=== PATIENT | male | born 1945 | race Caucasian/White ===

== ENCOUNTER → 2018-10-01 | Day surgery (SDC) | payer MEDICARE ==
[~2018-10-01] MED LIST: BELLADONNA/OPIUM 60 MG SUPP PR ONE; CEFAZOLIN SOD 2 GM/D5W 50ML 50 ML IV ONE; DESFLURANE 240 ML BTL INH ONE; DEXAMETHASONE SOD PHOS INJ 4 MG/ML VIAL ONE; ELIQUIS PO; FAMOTIDINE20 MG PO; FENTANYL CITRATE/PF 100MCG/2 ML INJ ONE; IOPAMIDOL 610MG/1ML 300 MG/ML VIAL IV ONE; LASIX40 MG PO; LIDOCAINE HCL 2% LOCAL INJ 5 ML SDV VIAL INJ ONE; MIDAZOLAM HCL 2 MG/2 ML VIAL ONE; MUPIROCIN 2% OINT 22 GM TUBE ONE; NEOSTIGMINE 5 MG/5ML SYR ONE; NITROFURANTOIN100 MG PO; ONDANSETRON HCL INJ 2MG/ML 2ML 2 MG/ML VIAL ONE; PROPOFOL IV EMULSION 10 MG/ML 20 ML VIAL ONE; ROCURONIUM BROMIDE 10 MG/ML 5ML VIAL ONE; SUCCINYLCHOLINE 200 MG/10 ML SYR ONE
--- OUTSIDE RECORDS SUMMARY | 2018-10-01 08:58 | XMS REPORT | Continuity of Care Document ---
Author Author [facility] Address [address] [place] [address] ;ext= Care Team Providers Care Pump Erector Helper Name Role Phone JULYSTEPHANYMAME Admphys [facility] Diagnosis * No data in the System SOCIAL HISTORY * Smoking Status - No data in the system Problems Code Code System Problem Name Start Date End Date Status 928661641 SNOMED-CT Small bowel obstruction 03/24/2018 Active 3331087 SNOMED-CT Acute abdomen 07/25/1999 Active 8046442 SNOMED-CT Priapism [address] Description [id number] Patient Not On Self-Medication Allergies Code Code System Allergy Substance Type Reaction Severity Start Date End Date Status RXNorm NKA Drug allergy Unknown Active Results Laboratory Results Order: [facility] HISTOLOGY RESULT Specimen Source: APSURG Body Site: LOINC Test Result Flag Range Unit Date 1 03/25/2018 11:[address] [place] [address] 03/25/2018 11:39 1 [place], [place] [address] 03/25/2018 11:39 1 03/25/2018 11:39 1 CLIA #: [id number] Sample Sawyer: Kimani Adan M.D. 03/25/2018 11:39 1 Surgical Pathology Consultation Report 03/25/2018 11:39 1 Patient Name: SANDER RAMOS Case #: [id number] Med. Rec. #: 03/25/2018 11:39 4 [id number] 03/25/2018 11:39 1 [facility]: [facility] Surgery Date: 03/24/2018 : 1945 (Age: 72) 03/25/2018 11:39 1 Account #: 03/25/2018 11:39 7 [id number] Received: 03/25/2018 Gender: M Copy to : Reported: 03/25/2018 11:39 1 03/26/2018 03/25/2018 11:39 1 Physician(s): Stephany Mcdowell 03/25/2018 11:39 1 03/25/2018 11:39 1 Specimen(s) Received 03/25/2018 11:39 1 A: Hernia sac, NOS 03/25/2018 11:39 1 B: Omentum, resection 03/25/2018 11:39 1 Final Pathologic Diagnosis 03/25/2018 11:39 1 A. Soft tissue of abdomen, hernia repair: 03/25/2018 11:39 1 - HERNIA SAC. 03/25/2018 11:39 1 B. Omentum, resection: 03/25/2018 11:39 1 - MATURE ADIPOSE TISSUE, NO TUMOR PRESENT. 03/25/2018 11:39 1 Electronically Signed Out 03/25/2018 11:39 1 ka/03/26/2018 Kimani Adan MD, Board Certified in Anatomic Pathology 03/25/2018 11:39 1 03/25/2018 11:39 1 Clinical History 03/25/2018 11:39 1 Abdominal hernia. 03/25/2018 11:39 1 Gross Description 03/25/2018 11:39 1 Specimen A is labeled hernia sac. Three pieces of fatty omental tissue 03/25/2018 11:39 1 measuring 9.8 x 9 x up to 5 cm in aggregate are received. Serially 03/25/2018 11:39 1 sectioning 03/25/2018 11:39 1 reveals a slightly hemorrhagic cut surface. Service Delivery Management Consultant sections are 03/25/2018 11:39 1 submitted in cassette A. 03/25/2018 11:39 1 Specimen B is labeled omentum. An aggregate of fatty omental tissue 03/25/2018 11:39 1 measuring 03/25/2018 11:39 1 16 x 14 x up to 8 cm is received. Serially sectioning reveals a bright 03/25/2018 11:39 1 yellow 03/25/2018 11:39 1 cut surface. There are no tumor masses identified. 03/25/2018 11:39 1 /03/25/2018 Kimani Adan MD, Board Certified in Anatomic Pathology 03/25/2018 11:39 1 03/25/2018 11:39 1 Microscopic Description 03/25/2018 11:39 1 Microscopic examination of specimen A labeled hernia sac reveals 03/25/2018 11:39 1 mesothelial-lined fatty fibrovascular tissue. There is a mild chronic 03/25/2018 11:39 1 inflammatory cell infiltrate seen within the fibrous tissue. 03/25/2018 11:39 1 Microscopic examination of specimen B labeled mesenteric adipose tissue 03/25/2018 11:39 1 reveals mature adipose tissue. There are no malignant cells seen. 03/25/2018 11:39 1 Billing Fee Code(s): A; [id number] 03/25/2018 11:39 1 B; [id number] 03/25/2018 11:39 * Performing Lab Footnotes:* [address] [place] [address] - [phone] - [address] [address] [facility] - MD: DIRECTOR KIMANI ADAN Vital Signs * No data in the system Advance Directives Undefined Advance Directive Directive Type Effective Date Manager Product Notes Supporting Document Name Address Phone No Directive Type specified 08/22/2012 21:27 Not Specified Not Specified Not Specified None No Patient does NOT have Living Will Directive Type Effective Date Manager Product Notes Supporting Document Name Address Phone No Directive Type specified 03/24/2018 02:49 Not Specified Not Specified Not Specified None No Full Code Directive Type Effective Date Manager Product Notes Supporting Document Name Address Phone No Directive Type specified 03/24/2018 10:15 Not Specified Not Specified Not Specified None No Family History * Patient has no knowledge of Family History Plan of Care * No data in the system Procedures * No data in the system Encounters * No data in the system Immunizations Vaccine Code Code System Vaccine Name Date Status 141 CVX Influenza, seasonal, injectable Completed 33 CVX pneumococcal polysaccharide vaccine Completed Functional Status * No data in the system Hospital Discharge Instructions * No data in the system
--- OUTSIDE RECORDS SUMMARY | 2018-10-01 08:58 | XMS REPORT | Continuity of Care Document ---
Author Author [facility] Organization [facility] Address [address] [place] [address] ;ext= Care Team Providers Care Manager R D Name Role Phone CHARLES SERRANO Admphys SRAVANIKAYLIEMARCE [place] Attphys LUÍS GORDON CP MAME MCDOWELL CP ANGELA MAURICIO CP CHANTE DOWNING CP JASON ADAN CP Hospital Admission Diagnosis * No data in the System Social History Element Description Code Description Smoking Status Code System Start Date End Date Smoking Status [id number] Never smoker SNOMED-CT Problems Code Code System Problem Name Start Date End Date Status 332714489 SNOMED-CT Small bowel obstruction 03/24/2018 Active 0639671 SNOMED-CT Acute abdomen 07/25/1999 Active 0584803 SNOMED-CT Priapism 1988 Active Medications RxNorm Medication Dose Route Instructions Indications Start Date End Date Status 389196 Nystatin 100 UNT/MG Topical Powder 1 APPLIC TOPICAL TOPICAL TWICE A DAY (14 Days) Active Allergies Code Code System Allergy Substance Type Reaction Severity Start Date End Date Status RXNorm NKA Drug allergy Unknown Active Results Laboratory Results Order: CBC with MANUAL DIFF Specimen Source: BLOOD Body Site: LOINC Test Result Flag Range Unit Date 07629-5 1Leukocytes^^corrected for nucleated erythrocytes:NCnc:Pt:Bld:Qn:Automated count 11.07 H 4.80-10.80 10^3/ul 04/01/2018 13:47 789-8 1Erythrocytes:NCnc:Pt:Bld:Qn:Automated count 4.39 L 4.70-6.10 10^6/ul 04/01/2018 13:47 718-7 1Hemoglobin:MCnc:Pt:Bld:Qn 14.5 14.0-18.0 gm/dl 04/01/2018 13:47 4544-3 1Hematocrit:VFr:Pt:Bld:Qn:Automated count 43.4 42.0-50.0 % 04/01/2018 13:47 787-2 1Erythrocyte mean corpuscular volume:EntVol:Pt:RBC:Qn:Automated count 98.9 H 80.0-94.0 fL 04/01/2018 13:47 785-6 1Erythrocyte mean corpuscular hemoglobin:EntMass:Pt:RBC:Qn:Automated count 33 H 27.0-31.0 pg 04/01/2018 13:47 786-4 1Erythrocyte mean corpuscular hemoglobin concentration:MCnc:Pt:RBC:Qn:Automated count 33.4 33.0-37.0 gm/dl 04/01/2018 13:47 788-0 1Erythrocyte distribution width:Ratio:Pt:RBC:Qn:Automated count 12.8 11.5-14.5 % 04/01/2018 13:47 777-3 1Platelets:NCnc:Pt:Bld:Qn:Automated count 170 130-400 10^3/ul 04/01/2018 13:47 05140-9 1Platelet mean volume:EntVol:Pt:Bld:Qn:Automated count 10.6 A 7.4-10.4 fL 04/01/2018 13:47 Note: 'NOT MEASURED' RESULTS ARE DISPLAYED WHEN THE INSTRUMENT HAS A SUPPRESSED OR UNREPORTABLE RESULT. THIS WILL MOST OFTEN HAPPEN WITH THE MPV WHEN THERE IS AN ABNORMAL PLATELET DISTRIBUTION DUE TO A CRITICAL LOW VALUE OR PLATELET CLUMPING. THE RDW MAY BE SUPPRESSED IF THERE ARE MULTIPLE PEAKS PRESENT ON THE RBC HISTOGRAM. IN THIS CASE, A MANUAL REVIEW OF THE SLIDE WILL BE PERFORMED, AND RBC MORPHOLOGY WILL BE NOTED ON THE REPORT. 1Neutrophils 84 H 42-75 10^3/ul 04/01/2018 13:47 1Lymphocytes 7 L 13-42 % 04/01/2018 13:47 1Monocytes 6 4-14 % 04/01/2018 13:47 1Eosinophils 3 1-3 % 04/01/2018 13:47 1RBC Morphology Normochromic 04/01/2018 13:47 * Performing Lab Footnotes:* [address] [place] [address] - [id number] - [address] [facility] [address] [place] [address] [facility] - MD: DIRECTOR KIMANI ADAN Order: CBC - HEMOGRAM ONLY Specimen Source: BLOOD Body Site: INC Test Result Flag Range Unit Date 1Leukocytes^^corrected for nucleated erythrocytes:NCnc:Pt:Bld:Qn:Automated count 9.46 4.80-10.80 10^3/ul 04/01/2018 07:25 789-8 1Erythrocytes:NCnc:Pt:Bld:Qn:Automated count 5.76 4.70-6.10 10^6/ul 04/01/2018 07:25 718-7 1Hemoglobin:MCnc:Pt:Bld:Qn 19.2 H 14.0-18.0 gm/dl 04/01/2018 07:25 4544-3 1Hematocrit:VFr:Pt:Bld:Qn:Automated count 55.6 H 42.0-50.0 % 04/01/2018 07:25 787-2 1Erythrocyte mean corpuscular volume:EntVol:Pt:RBC:Qn:Automated count 96.5 H 80.0-94.0 fL 04/01/2018 07:25 785-6 1Erythrocyte mean corpuscular hemoglobin:EntMass:Pt:RBC:Qn:Automated count 33.3 H 27.0-31.0 pg 04/01/2018 07:25 786-4 1Erythrocyte mean corpuscular hemoglobin concentration:MCnc:Pt:RBC:Qn:Automated count 34.5 33.0-37.0 gm/dl 04/01/2018 07:25 788-0 1Erythrocyte distribution width:Ratio:Pt:RBC:Qn:Automated count 12.8 11.5-14.5 % 04/01/2018 07:25 777-3 1Platelets:NCnc:Pt:Bld:Qn:Automated count 117 L 130-400 10^3/ul 04/01/2018 07:25 40020-5 1Platelet mean volume:EntVol:Pt:Bld:Qn:Automated count 11.1 A 7.4-10.4 fL 04/01/2018 07:25 Note: 'NOT MEASURED' RESULTS ARE DISPLAYED WHEN THE INSTRUMENT HAS A SUPPRESSED OR UNREPORTABLE RESULT. THIS WILL MOST OFTEN HAPPEN WITH THE MPV WHEN THERE IS AN ABNORMAL PLATELET DISTRIBUTION DUE TO A CRITICAL LOW VALUE OR PLATELET CLUMPING. THE RDW MAY BE SUPPRESSED IF THERE ARE MULTIPLE PEAKS PRESENT ON THE RBC HISTOGRAM. IN THIS CASE, A MANUAL REVIEW OF THE SLIDE WILL BE PERFORMED, AND RBC MORPHOLOGY WILL BE NOTED ON THE REPORT. * Performing Lab Footnotes:* [address] [place] [address] - [id number] - [address] [place] [address] [place] - MD: DIRECTOR KIMANI ADAN Order: BMP BASIC METABOLIC PANEL Specimen Source: BLOOD Body Site: LOINC Test Result Flag Range Unit Date 1Sodium 144 137-145 mmol/l 04/01/2018 06:19 1Potassium 4 3.5-5.0 mmol/l 04/01/2018 06:19 1Chloride 111 H 98-107 mmol/l 04/01/2018 06:19 1Calcium 8.9 8.4-10.2 mg/dl 04/01/2018 06:19 1CO2 26 22-30 mmol/l 04/01/2018 06:19 1Glucose 109 75-110 mg/dl 04/01/2018 06:19 1BUN 26 H 6.0-17.0 mg/dl 04/01/2018 06:19 1Creatinine 1.1 0.4-1.2 mg/dl 04/01/2018 06:19 1EGFR if >60 mL/min/1.73m^2 04/01/2018 06:19 1EGFR if Non- >60 mL/min/1.73m^2 04/01/2018 06:19 Note: Estimated Glomerular Filtration Rate (eGFR) Reference Intervals Decision Points for 18 years and older and average body mass: >=60 Does not exclude kidney disease. 30 - 59 Suggests moderate chronic kidney disease and indicates the need for further investigation including assessment of proteinuria and cardiovascular factors. < 30 Usually indicates a need for referral for assessment and management of chronic kidney failure. * Performing Lab Footnotes:* [address] [place] [address] [id number] - [address] [place] [address] [facility] - MD: DIRECTOR KIMANI ADAN Order: CBC PLATELET AUTO DIFF Specimen Source: BLOOD Body Site: [facility] Test Result Flag Range Unit Date 1Leukocytes^^corrected for nucleated erythrocytes:NCnc:Pt:Bld:Qn:Automated count 8.08 4.80-10.80 10^3/ul 03/31/2018 06:10 789-8 1Erythrocytes:NCnc:Pt:Bld:Qn:Automated count 4.6 L 4.70-6.10 10^6/ul 03/31/2018 06:10 718-7 1Hemoglobin:MCnc:Pt:Bld:Qn 15.1 14.0-18.0 gm/dl 03/31/2018 06:10 4544-3 1Hematocrit:VFr:Pt:Bld:Qn:Automated count 45.6 42.0-50.0 % 03/31/2018 06:10 787-2 1Erythrocyte mean corpuscular volume:EntVol:Pt:RBC:Qn:Automated count 99.1 H 80.0-94.0 fL 03/31/2018 06:10 785-6 1Erythrocyte mean corpuscular hemoglobin:EntMass:Pt:RBC:Qn:Automated count 32.8 H 27.0-31.0 pg 03/31/2018 06:10 786-4 1Erythrocyte mean corpuscular hemoglobin concentration:MCnc:Pt:RBC:Qn:Automated count 33.1 33.0-37.0 gm/dl 03/31/2018 06:10 788-0 1Erythrocyte distribution width:Ratio:Pt:RBC:Qn:Automated count 12.7 11.5-14.5 % 03/31/2018 06:10 777-3 1Platelets:NCnc:Pt:Bld:Qn:Automated count 167 130-400 10^3/ul 03/31/2018 06:10 43439-3 1Platelet mean volume:EntVol:Pt:Bld:Qn:Automated count 11.1 A 7.4-10.4 fL 03/31/2018 06:10 Note: 'NOT MEASURED' RESULTS ARE DISPLAYED WHEN THE INSTRUMENT HAS A SUPPRESSED OR UNREPORTABLE RESULT. THIS WILL MOST OFTEN HAPPEN WITH THE MPV WHEN THERE IS AN ABNORMAL PLATELET DISTRIBUTION DUE TO A CRITICAL LOW VALUE OR PLATELET CLUMPING. THE RDW MAY BE SUPPRESSED IF THERE ARE MULTIPLE PEAKS PRESENT ON THE RBC HISTOGRAM. IN THIS CASE, A MANUAL REVIEW OF THE SLIDE WILL BE PERFORMED, AND RBC MORPHOLOGY WILL BE NOTED ON THE REPORT. 770-8 1Neutrophils/100 leukocytes:NFr:Pt:Bld:Qn:Automated count 68.3 42.0-75.0 % 03/31/2018 06:10 736-9 1Lymphocytes/100 leukocytes:NFr:Pt:Bld:Qn:Automated count 11.8 L 13.0-42.0 % 03/31/2018 06:10 5905-5 1Monocytes/100 leukocytes:NFr:Pt:Bld:Qn:Automated count 10.9 4.0-14.0 % 03/31/2018 06:10 713-8 1Eosinophils/100 leukocytes:NFr:Pt:Bld:Qn:Automated count 5.2 H 1.0-5.0 % 03/31/2018 06:10 706-2 1Basophils/100 leukocytes:NFr:Pt:Bld:Qn:Automated count 1.2 0.0-3.0 % 03/31/2018 06:10 1IG% 2.6 H 0.0-0.4 % 03/31/2018 06:10 * Performing Lab Footnotes:* [address] [place] [address] - [id number] - [address] [facility] [address] [facility] [place] [address] [facility] - MD: DIRECTOR KIMANI ADAN Order: CMP COMPREHENSIVE METABOLIC PANEL Specimen Source: BLOOD Body Site: LOINC Test Result Flag Range Unit Date 1Sodium 143 137-145 mmol/l 03/31/2018 06:10 1Potassium 4 3.5-5.0 mmol/l 03/31/2018 06:10 1Chloride 112 H 98-107 mmol/l 03/31/2018 06:10 1Calcium 8.9 8.4-10.2 mg/dl 03/31/2018 06:10 1CO2 24 22-30 mmol/l 03/31/2018 06:10 1Glucose 108 75-110 mg/dl 03/31/2018 06:10 1BUN 39 H 6.0-17.0 mg/dl 03/31/2018 06:10 1Creatinine 1.6 H 0.4-1.2 mg/dl 03/31/2018 06:10 1T Protein 6.9 5.1-8.7 gm/dl 03/31/2018 06:10 1Albumin 3.3 L 3.5-4.6 gm/dl 03/31/2018 06:10 1A/G Ratio 0.9 L 1.1-2.2 % 03/31/2018 06:10 1AST (SGOT) 64 H 11-36 U/L 03/31/2018 06:10 1ALT (SGPT) 55 H 11-40 U/L 03/31/2018 06:10 1Alkaline Phos 153 H 47-114 U/L 03/31/2018 06:10 1Total Bilirubin 0.9 0.2-1.2 mg/dl 03/31/2018 06:10 1Globulin 3.6 H 2.3-3.5 gm/dl 03/31/2018 06:10 1Calcium, Corrected 9.5 8.4-10.2 mg/dl 03/31/2018 06:10 Note: Various formulas exist for corrected serum calcium results, each yielding different values. This corrected result was based on the formula: Corrected Calcium=SerumCalcium + [0.8 * ( 4 - SerumAlbumin)] 1EGFR if 55 mL/min/1.73m^2 03/31/2018 06:10 1EGFR if Non- 45 mL/min/1.73m^2 03/31/2018 06:10 Note: Estimated Glomerular Filtration Rate (eGFR) Reference Intervals Decision Points for 18 years and older and average body mass: >=60 Does not exclude kidney disease. 30 - 59 Suggests moderate chronic kidney disease and indicates the need for further investigation including assessment of proteinuria and cardiovascular factors. < 30 Usually indicates a need for referral for assessment and management of chronic kidney failure. * Performing Lab Footnotes:* [address] [place] [address] - [id number] - [address] [place] [address] [place] [address] [facility] - MD: DIRECTOR KIMANI ADAN Order: MAGNESIUM SERUM Specimen Source: BLOOD Body Site: [facility] Test Result Flag Range Unit Date 1Magnesium 1.6 1.6-2.3 mg/dl 03/31/2018 06:10 * Performing Lab Footnotes:* [address] [place] [address] - [id number] - [address] [place] [address] JOLLY Oh MD: DIRECTOR KIMANI ADAN Order: PROTIME PT INR Specimen Source: BLOOD Body Site: LOINC Test Result Flag Range Unit Date 5902- 1Coagulation tissue factor induced:Time:Pt:PPP:Qn:Coag 10.8 9.0-11.9 seconds 03/29/2018 12:20 6301-6 1Coagulation tissue factor induced.INR:RelTime:Pt:PPP:Qn:Coag 1 0.9-1.1 03/29/2018 12:20 Note: INR results are intended ONLY to monitor Oral Anticoagulant therapy in stablized patients. The INR Therapeutic Range is 2.0 - 3.0 Patients with a mechanical heart, the INR Range is 2.5 - 3.5 * Performing Lab Footnotes:* [address] [place] [address] [id number] - [address] [place] [address] JOLLY Oh MD: DIRECTOR KIMANI ADAN Order: PRO BNP B - NATRIURETIC PEPTIDE Specimen Source: BLOOD Body Site: LOINC Test Result Flag Range Unit Date 40756-1 1Natriuretic peptide.B prohormone N-Terminal:MCnc:Pt:Ser/Plas:Qn 9160 H 0-125 pg/ml 03/26/2018 21:54 Note: THE METHODOLOGY FOR DETECTION OF B-NATRIURETIC PEPTIDE HAS BEEN CHANGED TO 'NT pro-BNP'. THE NORMAL RANGES HAVE CHANGED. PLEASE NOTE THAT RANGES ARE DEFINED BY THE AGE OF THE PATIENT. (<75 years old=0-125 pg/ml 75years and older=0-450pg/ml). VALUES ARE NOT INTERCHANGEABLE BETWEEN METHODS. 06-23-2006 * Performing Lab Footnotes:* [address] [place] [address] - [id number] - [address] [facility] [address] [place] [address], [place] [address] [facility] - MD: DIRECTOR KIMANI ADAN Order: CULTURE URINE COLONY COUNT Specimen Source: URINE SPECIMENS Body Site: [facility] Test Result Flag Range Unit Date Specimen: Urine Specimens 03/26/2018 21:40 Collected: 03/26/2018 21:40 03/26/2018 21:40 03/26/2018 21:40 Status: Final Last Updated: 03/29/2018 06:21 03/26/2018 21:40 03/26/2018 21:40 03/26/2018 21:40 Culture Result (Final) (Final) 03/26/2018 21:40 No Growth After 48 Hours 03/26/2018 21:40 03/26/2018 21:40 03/26/2018 21:40 Radiology Results Order: [id number] US RENAL & BLADDER (KIDNEYS)* Exam Completion Date:03/29/2018 09:47 Procedure: US RENAL Order Date: 03/29/2018 9:47 AMOrdering Provider: CHARLES Siddiqiinical Indication: ABDDIST: Abdominal Distentionworsening renal failure , eval for worsening hydronephrosisComparison: March 26, 2018Technique: Real-t cecilia ultrasonography was obtained over the kidneys and urinarybladder and represe ntative images were recorded.Findings:The right kidney is normal in size and con tour. The right kidney measures 11.1 x6.7 x 6.9 cm in CC, AP, and transverse dim ensions. There is normal renal cortical thickness and echogenicity. Mild right h ydronephrosis.No calculi or masses.The left kidney is normal in size and contour . The left kidney measures 10.1 x6.2 x 6.7 cm in CC, AP, and transverse dimensio ns. There is normal renal cortical thickness and echogenicity.There is a simple cyst arising from the superior pole measuring 4.9 x 4.0 cm.Mild left hydronephro sis.No calculi or masses.The bladder is significantly distended with a total vol ume of 1167 mL.Patient did not have an urge to void.There are no bladder calculi , masses, or focal wall thickening.Impression:1. Significant distention of the b ladder with a volume of 1167 mL. The patienthad no urge to void during the exam. Recommend Hernández catheter placement.2. Mild hydronephrosis bilaterally which is likely secondary to the distendedbladder.3. 4.9 cm simple cyst arising from the superior pole of the left kidney.5. No solid renal masses or calculi.6. Prelimin cherri report relayed by the manager company to the attending nurse.This final report w as electronically signed by Dr Dangelo Stephens MD 03/29/201811:27 AMDictated By: DANGELO STEPHENS.Date: 03/29/2018 11:27 Vital Signs Vitals Value Date Body Temperature 97.4 F 04/03/2018 Pulse Rate 67 04/03/2018 Respiratory Rate 20 04/03/2018 O2% BldC Oximetry 98 04/03/2018 BP Systolic 127 mmHg 04/03/2018 BP Diastolic 58 mmHg 04/03/2018 Weight Measured 440.26 lbs 04/03/2018 Advance Directives Undefined Advance Directive Directive Type Effective Date Spinning Frame Tender Notes Supporting Document Name Address Phone No Directive Type specified 08/22/2012 21:27 Not Specified Not Specified Not Specified None No Patient does NOT have Living Will Directive Type Effective Date Spinning Frame Tender Notes Supporting Document Name Address Phone No Directive Type specified 03/24/2018 02:49 Not Specified Not Specified Not Specified None No Full Code Directive Type Effective Date Spinning Frame Tender Notes Supporting Document Name Address Phone No Directive Type specified 03/24/2018 10:15 Not Specified Not Specified Not Specified None No Family History * Patient has no knowledge of Family History Plan of Care * No data in the system Procedures Code Code System Procedure Name Target Site Date of Procedure RENAL & BLADDER (KIDNEYS) 03/29/2018 11:33 Encounters * No data in the system Immunizations Vaccine Code Code System Vaccine Name Date Status 141 CVX Influenza, seasonal, injectable Completed 33 CVX pneumococcal polysaccharide vaccine Completed Functional Status Code Functional/Cognitive Condition Code System Date Status 365127505 Assisting with personal hygiene (procedure) [facility] 03/26/2018 Active 227756453 Ability to perform activities of everyday life (observable entity) [facility] 03/26/2018 Active 326266796 Able to wash self [facility] 03/26/2018 Active 535221388 Ability to manage personal health care (observable entity) [facility] 03/26/2018 Active 676188649 Self-care assistance: instrumental activity of daily living (procedure) [facility] 03/26/2018 Active 40618901 Normal vision [facility] 03/26/2018 Active 077527023 Unsteady gait [facility] 03/30/2018 Active 334454185 Stable gait (finding) [facility] 03/31/2018 Active 599629193 Wears glasses [facility] 04/01/2018 Active 736575282 No speech problem (situation) [facility] 04/02/2018 Active 853481782 Firm pressure touch, function (observable entity) [facility] 04/02/2018 Active 387217639 Orientated SNOMED-CT 04/03/2018 Active 087269279 Orientated SNOMED-CT 04/03/2018 Active 010717398 Orientated SNOMED-CT 04/03/2018 Active 787007911 Oriented to person [facility] 04/03/2018 Active Hospital Discharge Instructions * Discharge Instructions* IV Removed Date* 04/03/2018 * Discharge Diagnosis* Small Bowel obstruction, UTI * Physician Name for Follow Up Appt #1* Make appointment with Dr Adan in 2 weeks [phone] * Physician Name for Follow Up Appt #2* Get Primary Care Physician and follow up in 2 weeks * Physician Name, Date/Time For Follow Up Appt #3* Keep hernández in and flush as instructed until appointment with Dr Adan * Hernández Catheter Insertion Date* 03/31/2018 * Referral Required* None * Activity Level* As tolerated, unrestricted * Medications* Prescriptions Given * Take all medications as listed on your Discharge Medication List as directed * DO NOT STOP taking your medicine(s) until directed by your doctor. * Diet* Regular * Discharge Instructions* Patient education provided * Wound Care * Follow Up Care* Yes * Patient To Schedule * Copy of Advanced Directive given to Patient* No * Pneumonia Vaccine* Refused By Patient * Indwelling Catheter Status* - Medical contraindication * - Not indicated * Indwelling Catheter Not Removed * Pt sent home with indwelling catheter * Discharge Instructions 2* Wound / Incision Care* Keep wound / incision clean and dry * If steri-strips become loose, remove them * Call doctor if temperature is above 101 or if change in wound /incision / drainage is noted * Core Measure / Get with the Guidelines (AMI/HF)* Review Discharge Medications with patient for next dose times * Smoking Cessation Teaching* Patient is nonsmoker or former smoker of greater than one year * Discharge Education* Copy of Discharge Medication List * Notify Physician if You Experience:* Chest discomfort not relieved by 3 Nitroglycerin tabs, 5 minutes apart * Chest discomfort that goes away and comes back * Chest discomfort, squeezing, pressure, fullness * Discomfort in other areas of the upper body, arms, back, neck, jaw, gums * Shortness of breath, with or without chest discomfort * Worsening of condition * Notify Surgeon if You Experience:* Increased warmth around surgical area * Redness or increased pain around surgical area * Red streaks coming from surgical area * Personal Belongings Returned To Patient/Family* Yes * Valuables Returned To Patient/Family* Yes * Pre-Admission Medications Returned To Patient/Family* Yes * Patient/Significant Other Education Acknowledgement* I hereby acknowledge receiving the explanation of the attached instructions. I was able to 'teach back' my health information and education to my nurse and I understand what I was taught as indicated by my signature below. * Person Receiving Discharge Instructions* Ben Shell and * Discharge Instructions Explained To* Patient * Discharge Summary* Accompanied By* Spouse * Discharge Status* Vital Signs Stable * Afebrile * Adequate Diet/Liquid Intake * Adequate Urinary Output * Adequate Bowel Functioning * Activity Tolerated within Physical Limits * Mode Of Discharge* Wheelchair * Patient Transferred/Discharged To* Relatives * Home Health Care Monitoring Required* No * Pain At Discharge* Denies Pain
--- OUTSIDE RECORDS SUMMARY | 2018-10-01 08:58 | XMS REPORT ---
Author Author [facility] Address Unknown Phone Unavailable Care Team Providers Care Ecologist Technician Name Role Phone Unavailable Unavailable Payers Payer Name Policy Type Policy Number Effective Date Expiration Date Problems This patient has no known problems. Allergies, Adverse Reactions, Alerts Allergy Name Allergy Type Status Severity Reaction(s) Onset Date Inactive Date Treating Clinician Comments No Known Allergies DA Active U 2018-04-10 00:00:00 No Known Contrast Allergies DA Active U 2003-09-24 00:00:00 No Known Drug Allergies DA Active U 2003-09-24 00:00:00 No Known Food Allergies DA Active U 2003-09-24 00:00:00 No Known Other Allergies DA Active U 2003-09-24 00:00:00 Medications This patient has no known medications.
--- OUTSIDE RECORDS SUMMARY | 2018-10-01 08:58 | XMS REPORT | Continuity of Care Document ---
Author Author [facility] Organization [facility] Address [address] [place] [address] ;ext= Care Team Providers Care House Carpenter Name Role Phone CHRISTOPHER CAMARENA Admphybang [facility] Diagnosis * No data in the System Social History Element Description Code Description Smoking Status Code System Start Date End Date Smoking Status [id number] Never smoker SNOMED-CT Problems Code Code System Problem Name Start Date End Date Status 671205849 SNOMED-CT Falls 04/04/2018 Active 53528097 SNOMED-CT Contusion of lower limb 04/04/2018 Active 107315792 SNOMED-CT Small bowel obstruction 03/24/2018 Active 0603069 SNOMED-CT Acute abdomen 07/25/1999 Active 6836685 SNOMED-CT Priapism 1988 Active Medications RxNorm Medication Dose Route Instructions Indications Start Date End Date Status 639418 Nystatin 100 UNT/MG Topical Powder 1 APPLIC TOPICAL TOPICAL TWICE A DAY (14 Days) No Longer Active Allergies Code Code System Allergy Substance Type Reaction Severity Start Date End Date Status RXNorm NKA Drug allergy Unknown Active Results Radiology Results Order: [id number] XR LEG (TIB/FIB) 2 VIEWS* Exam Completion Date:04/04/2018 01:02 Procedure: XR LEG (TIB/FIB) 2 VIEWS, XR LEG (TIB/FIB) 2 VIEWS Exam Date: April 04, 2018 Ordering Provider: Christopher Pinoinical Indication: pain s/p fa llComparison: NoneFindings: See impressionImpression: 1. No acute osseous abn ormalities in the bilateral leg (tibial/fibular).2. Bilateral degenerative brian ges of the knee with medial compartmentpredominance.3. Diffuse soft tissue rochelle a and vascular calcifications throughout the softtissuesThis final report was el ectronically signed by Dr Christopher Jenkins MD04/04/2018 2:17 AMDictated By: Enrique RIVERS: 04/04/2018 02:17 Order: [id number] XR FOOT 2VWS* Exam Completion Date:04/04/2018 01:02 Procedure: XR FOOT 2VWS Exam Date: April 04, 2018 Ordering Provider: CHRISTOPHER Bustos Indication: pain s/p fallComparison: NoneFindings: See impr essionImpression: 1. No evidence of acute osseous abnormalities.2. There is d iffuse soft tissue edema throughout the right foot with dorsalfoot predominance. 3. Multiple soft tissue calcifications noted on the lower pretibialdistribution .4. Degenerative changes of the mid and forefootThis final report was electroni susan signed by Dr Christopher Jenkins MD04/04/2018 2:18 AMDictated By: Enrique GOLDEN: 04/04/2018 02:18 Order: [id number] XR LEG (TIB/FIB) 2 VIEWS* Exam Completion Date:04/04/2018 01:01 Procedure: XR LEG (TIB/FIB) 2 VIEWS, XR LEG (TIB/FIB) 2 VIEWS Exam Date: April 04, 2018 Ordering Provider: Christopher Bustos Indication: pain s/p fa llComparison: NoneFindings: See impressionImpression: 1. No acute osseous abn ormalities in the bilateral leg (tibial/fibular).2. Bilateral degenerative brian ges of the knee with medial compartmentpredominance.3. Diffuse soft tissue rochelle a and vascular calcifications throughout the softtissuesThis final report was el ectronically signed by Dr Christopher Jenkins MD04/04/2018 2:17 AMDictated By: Enrique RIVERS: 04/04/2018 02:17 Order: [id number] XR FOOT 2VWS* Exam Completion Date:04/04/2018 01:01 Procedure: XR FOOT 2VWS Exam Date: April 04, 2018 Ordering Provider: Christopher Bustos Indication: pain s/p fallComparison: NoneFindings: See impr essionImpression: 1. No evidence of acute osseous abnormalities.2. There is d iffuse soft tissue edema throughout the right foot with dorsalfoot predominance. 3. Multiple soft tissue calcifications noted on the level of the ankle.4. Dege nerative changes of the mid and forefootThis final report was electronically sig anabell by Dr Christopher Jenkins MD04/04/2018 2:13 AMDictated By: VANNESSA FLORES ANDate: 04/04/2018 02:13 Vital Signs Vitals Value Date Pulse Rate 83 04/04/2018 Respiratory Rate 17 04/04/2018 O2% BldC Oximetry 97 04/04/2018 BP Systolic 116 mmHg 04/04/2018 BP Diastolic 66 mmHg 04/04/2018 Body Temperature 97.9 F 04/04/2018 Height 72 in 04/04/2018 Weight Measured 451.94 lbs 04/04/2018 BSA (Body Surface Area) 3.59287 04/04/2018 BMI (Body Mass Index) 61.8 04/04/2018 Advance Directives Undefined Advance Directive Directive Type Effective Date Seasonal Customer Service Associate Notes Supporting Document Name Address Phone No Directive Type specified 08/22/2012 21:27 Not Specified Not Specified Not Specified None No Patient does NOT have Living Will Directive Type Effective Date Seasonal Customer Service Associate Notes Supporting Document Name Address Phone No Directive Type specified 03/24/2018 02:49 Not Specified Not Specified Not Specified None No Full Code Directive Type Effective Date Seasonal Customer Service Associate Notes Supporting Document Name Address Phone No Directive Type specified 03/24/2018 10:15 Not Specified Not Specified Not Specified None No Family History * Patient has no knowledge of Family History Plan of Care * No data in the system Procedures Code Code System Procedure Name Target Site Date of Procedure XR FOOT 2VWS 04/04/2018 02:25 Encounters * No data in the system Immunizations Vaccine Code Code System Vaccine Name Date Status 141 CVX Influenza, seasonal, injectable Completed 33 CVX pneumococcal polysaccharide vaccine Completed PT NOT UP TO DATE FLU Completed Functional Status * No data in the system Hospital Discharge Instructions * Discharge Instructions 2* Discharge Diagnosis* fall prevention, contusion in adults * Important Information* Consult your physician or return to the Emergency Department immediately if worse, if not better as expected, or if any problems arise. * Please understand that you have received care only on an emergency basis. If your condition does not improve, you should call your personal physician for follow-up care. If you do not have a physician, you may call the referred physician listed. * If you have questions about your care or these discharge instructions, you may call the Emergency Department. Please take your discharge paperwork with you to any follow-up appointments. * Follow Up Care* No * Follow-Up With:* Primary Care Physician * Activity Level* As tolerated, unrestricted * Diet* Regular * Prescriptions Given Via:* Printed and given to patient/caregiver. * Patient Teaching* Patient education provided
--- OUTSIDE RECORDS SUMMARY | 2018-10-01 08:58 | XMS REPORT | Continuity of Care Document ---
Author Author [facility] Address [address] [place] [address] ;ext= Care Team Providers Care Assisted Living Administrator Name Role Phone CIHNO ESPINOSA Admphys CHINO ESPINOSA Attphys PATTI MARTINEZ CP Unavailable MAME MCDOWELL CP ANGELA MAURICIO CP Hospital Admission Diagnosis Code Admission Diagnosis Date [id number] Abdominal pain Social History Element Description Code Description Smoking Status Code System Start Date End Date Smoking Status [id number] Never smoker SNOMED-CT Problems Code Code System Problem Name Start Date End Date Status 770973394 SNOMED-CT Falls 04/04/2018 Active 13644491 SNOMED-CT Contusion of lower limb 04/04/2018 Active 681345132 SNOMED-CT Small bowel obstruction 03/24/2018 Active 1934664 SNOMED-CT Acute abdomen 07/25/1999 Active 6048081 SNOMED-CT Priapism [address] Description 671654477 Patient Not On Self-Medication Allergies Code Code System Allergy Substance Type Reaction Severity Start Date End Date Status RXNorm NKA Drug allergy Unknown Active Results Laboratory Results Order: BMP BASIC METABOLIC PANEL Specimen Source: BLOOD Body Site: LOINC Test Result Flag Range Unit Date 1Glucose 108 75-110 mg/dl 03/26/2018 14:00 1BUN 39 H 6.0-17.0 mg/dl 03/26/2018 14:00 1Creatinine 3.9 H 0.4-1.2 mg/dl 03/26/2018 14:00 1Sodium 143 137-145 mmol/l 03/26/2018 14:00 1Potassium 4.8 3.5-5.0 mmol/l 03/26/2018 14:00 1Chloride 111 H 98-107 mmol/l 03/26/2018 14:00 1CO2 25 22-30 mmol/l 03/26/2018 14:00 1Calcium 8.3 L 8.4-10.2 mg/dl 03/26/2018 14:00 1EGFR if 20 mL/min/1.73m^2 03/26/2018 14:00 1EGFR if Non- 16 mL/min/1.73m^2 03/26/2018 14:00 Note: Estimated Glomerular Filtration Rate (eGFR) Reference [...] chronic kidney failure. * Performing Lab Footnotes:* [address] [place], [place] [id number] [address] - MD: DIRECTOR KIMANI SOUSA Order: EOSINOPHIL COUNT URINE Specimen Source: URINE SPECIMENS Body Site: [facility] Test Result Flag Range Unit Date 1Eosinophils:ACnc:Pt:XXX:Ord:Paulino stain No Eosinophils Seen % 03/26/2018 12:33 Note: <5% few or none seen * Performing Lab Footnotes:* [facility] [address] [place] [address] - Order: CPK Specimen Source: BLOOD Body Site: LOINC Test Result Flag Range Unit Date 1CPK 354 H 30-135 U/L 03/26/2018 09:03 * Performing Lab Footnotes:* [address] [place] [address] - [id number] - [address] [place] [address] JOLLY - MD: DIRECTOR KIMANI SOUSA Order: CBC PLATELET AUTO DIFF Specimen Source: BLOOD Body Site: LOINC Test Result Flag Range Unit Date 52491-7 1Leukocytes^^corrected for nucleated erythrocytes:NCnc:Pt:Bld:Qn:Automated count 13.48 H 4.80-10.80 10^3/ul 03/26/2018 05:39 789-8 1Erythrocytes:NCnc:Pt:Bld:Qn:Automated count 5.17 4.70-6.10 10^6/ul 03/26/2018 05:39 718-7 1Hemoglobin:MCnc:Pt:Bld:Qn 16.9 14.0-18.0 gm/dl 03/26/2018 05:39 4544-3 1Hematocrit:VFr:Pt:Bld:Qn:Automated count 51.9 H 42.0-50.0 % 03/26/2018 05:39 787-2 1Erythrocyte mean corpuscular volume:EntVol:Pt:RBC:Qn:Automated count 100.4 H 80.0-94.0 fL 03/26/2018 05:39 785-6 1Erythrocyte mean corpuscular hemoglobin:EntMass:Pt:RBC:Qn:Automated count 32.7 H 27.0-31.0 pg 03/26/2018 05:39 786-4 1Erythrocyte mean corpuscular hemoglobin concentration:MCnc:Pt:RBC:Qn:Automated count 32.6 L 33.0-37.0 gm/dl 03/26/2018 05:39 788-0 1Erythrocyte distribution width:Ratio:Pt:RBC:Qn:Automated count 13.1 11.5-14.5 % 03/26/2018 05:39 777-3 1Platelets:NCnc:Pt:Bld:Qn:Automated count 188 130-400 10^3/ul 03/26/2018 05:39 32459-2 1Platelet mean volume:EntVol:Pt:Bld:Qn:Automated count 10.5 A 7.4-10.4 fL 03/26/2018 05:39 Note: 'NOT MEASURED' RESULTS ARE DISPLAYED WHEN [...] ON THE REPORT. 770-8 1Neutrophils/100 leukocytes:NFr:Pt:Bld:Qn:Automated count 82.1 H 42.0-75.0 % 03/26/2018 05:39 736-9 1Lymphocytes/100 leukocytes:NFr:Pt:Bld:Qn:Automated count 8 L 13.0-42.0 % 03/26/2018 05:39 5905-5 1Monocytes/100 leukocytes:NFr:Pt:Bld:Qn:Automated count 9.1 4.0-14.0 % 03/26/2018 05:39 713-8 1Eosinophils/100 leukocytes:NFr:Pt:Bld:Qn:Automated count 0.1 L 1.0-5.0 % 03/26/2018 05:39 706-2 1Basophils/100 leukocytes:NFr:Pt:Bld:Qn:Automated count 0.2 0.0-3.0 % 03/26/2018 05:39 1IG% 0.5 H 0.0-0.4 % 03/26/2018 05:39 * Performing Lab Footnotes:* [address] [place] [address] - [id number] - [address] [place] [address] [address] [place] [address] JOLLY Oh MD: DIRECTOR KIMANI SOUSA Order: CORONARY RISK Specimen Source: BLOOD Body Site: [facility] Test Result Flag Range Unit Date 1Triglycerides 95 0-149 mg/dl 03/26/2018 05:39 Note: Trig. Interpretation Guide: Normal: < 150 mg/dl Borderline High: 150 - 199 mg/dl High: 200 - 499 mg/dl Very High: >=500 mg/dl 1Cholesterol 129 0-198 mg/dl 03/26/2018 05:39 1HDL 46 35-86 mg/dl 03/26/2018 05:39 57630-6 1Cholesterol.in LDL:MCnc:Pt:Ser/Plas:Qn:Direct assay 88 0-99 mg/dl 03/26/2018 05:39 Note: Direct LDL Intrepretations: Optimal: <100 mg/dl Suspect: 100 - 129 mg/dl Borderline: 130 - 159 mg/dl High: 160 - 189 mg/dl Very High: >190 mg/dl 1Risk Factor 2.8 0.0-5.0 03/26/2018 05:39 Note: Risk Factor Men Women Risk Factor 3.4 3.3 1/2 Average 5.0 4.4 Average 9.6 7.1 2X Average 24.0 11.0 3X Average 1vLDL 19 L 20-50 mg/dl 03/26/2018 05:39 * Performing Lab Footnotes:* 1[facility] - [id number] - [address] [place] [address] JOLLY Oh MD: DIRECTOR KIMANI SOUSA Order: UA URINALYSIS WITH MICROSCOPY Specimen Source: URINE SPECIMENS Body Site: [facility] Test Result Flag Range Unit Date 5777-11 1Color:Type:Pt:Urine:Nom Brown 03/26/2018 03:45 5767-9 1Appearance:Aper:Pt:Urine:Nom CLEAR 03/26/2018 03:45 2349-9 1Glucose:ACnc:Pt:Urine:Ord 100 A NEGATIVE 03/26/2018 03:45 5770-3 1Bilirubin:ACnc:Pt:Urine:Ord:Test strip LARGE A NEGATIVE 03/26/2018 03:45 2514-8 1Ketones:ACnc:Pt:Urine:Ord:Test strip 15 A NEGATIVE 03/26/2018 03:45 5811-5 1Specific gravity:Rden:Pt:Urine:Qn:Test strip 1.020 A 1.005-1.030 03/26/2018 03:45 5794-3 1Hemoglobin:ACnc:Pt:Urine:Ord:Test strip LARGE A NEGATIVE 03/26/2018 03:45 5803-2 1pH:LsCnc:Pt:Urine:Qn:Test strip 7.0 A 4.5-8.0 03/26/2018 03:45 48155-5 1Protein:ACnc:Pt:Urine:Ord:Test strip >=300 A NEGATIVE 03/26/2018 03:45 5818-0 1Urobilinogen:ACnc:Pt:Urine:Ord:Test strip 4.0 A 0.2 03/26/2018 03:45 5802-4 1Nitrite:ACnc:Pt:Urine:Ord:Test strip POSITIVE A NEGATIVE 03/26/2018 03:45 5799-2 1Leukocyte esterase:ACnc:Pt:Urine:Ord:Test strip LARGE A NEGATIVE 03/26/2018 03:45 5821-4 1Leukocytes:Naric:Pt:Urine sed:Qn:Microscopy.light.HPF TNTC A 0-5 03/26/2018 03:45 31764-6 1Erythrocytes:Naric:Pt:Urine sed:Qn:Microscopy.light.HPF TNTC A 0-5 03/26/2018 03:45 41947-0 1Epithelial cells.squamous:Naric:Pt:Urine sed:Qn:Microscopy.light.HPF 0-1 A 0-10 03/26/2018 03:45 8247-9 1Mucus:ACnc:Pt:Urine sed:Ord:Microscopy.light Large A None Seen 03/26/2018 03:45 5769-5 1Bacteria:Naric:Pt:Urine sed:Qn:Microscopy.light.HPF 2+ A None Seen,Trace 03/26/2018 03:45 * Performing Lab Footnotes:* [address] [place], [place] [id number] [place] [address] JOLLY Oh MD: DIRECTOR KIMANI SOUSA Order: MAGNESIUM SERUM Specimen Source: BLOOD Body Site: [facility] Test Result Flag Range Unit Date 1Magnesium 2.2 1.6-2.3 mg/dl 03/25/2018 06:23 * Performing Lab Footnotes:* [address] [place], [place] [id number] [place] [address] JOLLY Oh MD: DIRECTOR KIMANI SOUSA Order: CMP COMPREHENSIVE METABOLIC PANEL Specimen Source: BLOOD Body Site: [facility] Test Result Flag Range Unit Date 1Glucose 128 H 75-110 mg/dl 03/24/2018 02:16 1BUN 23 H 6.0-17.0 mg/dl 03/24/2018 02:16 1Creatinine 1.4 H 0.4-1.2 mg/dl 03/24/2018 02:16 1Sodium 135 L 137-145 mmol/l 03/24/2018 02:16 1Potassium 4.2 3.5-5.0 mmol/l 03/24/2018 02:16 1Chloride 104 98-107 mmol/l 03/24/2018 02:16 1CO2 27 22-30 mmol/l 03/24/2018 02:16 1Calcium 9.2 8.4-10.2 mg/dl 03/24/2018 02:16 1T Protein 8.1 5.1-8.7 gm/dl 03/24/2018 02:16 1Albumin 3.4 L 3.5-4.6 gm/dl 03/24/2018 02:16 1A/G Ratio 0.7 L 1.1-2.2 % 03/24/2018 02:16 1AST (SGOT) 19 11-36 U/L 03/24/2018 02:16 1ALT (SGPT) 16 11-40 U/L 03/24/2018 02:16 1Alkaline Phos 115 H 47-114 U/L 03/24/2018 02:16 1Total Bilirubin 0.9 0.2-1.2 mg/dl 03/24/2018 02:16 1Globulin 4.7 H 2.3-3.5 gm/dl 03/24/2018 02:16 1Calcium, Corrected 9.7 8.4-10.2 mg/dl 03/24/2018 02:16 Note: Various formulas exist for corrected serum calcium results, each yielding different values. This corrected result was based on the formula: Corrected Calcium=SerumCalcium + [0.8 * ( 4 - SerumAlbumin)] 1EGFR if 47 mL/min/1.73m^2 03/24/2018 02:16 1EGFR if Non- 39 mL/min/1.73m^2 03/24/2018 02:16 Note: Estimated Glomerular Filtration Rate (eGFR) Reference [...] chronic kidney failure. * Performing Lab Footnotes:* [address] [place] [address] [id number] - [address] [place] [address] JOLLY Oh MD: DIRECTOR KIMANI SOUSA Order: LACTIC ACID IH Specimen Source: BLOOD Body Site: [facility] Test Result Flag Range Unit Date 1LACTATE 2.3 HH 0.7-2.0 mmol/l 03/24/2018 02:16 * Performing Lab Footnotes:* [address] [place], [place] [id number] - [address] [place] [address] JOLLY Oh MD: DIRECTOR KIMANI SOUSA Order: PROTIME PT INR Specimen Source: BLOOD Body Site: LOINC Test Result Flag Range Unit Date 1Protime 10.1 9.0-11.8 seconds 03/24/2018 02:16 6301-6 1Coagulation tissue factor induced.INR:RelTime:Pt:PPP:Qn:Coag 1 0.9-1.1 03/24/2018 02:16 Note: INR results are intended ONLY to monitor Oral Anticoagulant therapy in stablized patients. The INR Therapeutic Range is 2.0 - 3.0 Patients with a mechanical heart, the INR Range is 2.5 - 3.5 * Performing Lab Footnotes:* [address] [place], [place] [id number] - [address] [place] [address] JOLLY Oh MD: DIRECTOR KIMANI SOUSA Order: PTT PARTIAL THROMBOPLASTIN TM Specimen Source: BLOOD Body Site: LOINC Test Result Flag Range Unit Date 1aPTT 25.2 L 25.3-35.7 seconds 03/24/2018 02:16 * Performing Lab Footnotes:* 1[facility] - [id number] [facility] [address] [facility] [address] - MD: DIRECTOR KIMANI SOUSA Radiology Results Order: [id number] US RENAL & BLADDER (KIDNEYS)* Exam Completion Date:03/26/2018 08:25 Renal ultrasound:History: Hematuria and abdominal pain with distentionThe right kidney measures 10.4 cm, with a cortical thickness of 1.4 cm. The leftkidney gino sures 14.2 cm, with a cortical thickness of 1.8 cm.Parenchymal echogenicity is w ithin normal limits. A 4.2 cm left upper pole renalcyst is present. There is no renal calculus identified. Mild righthydronephrosis is present. There is a 2.4 c m left renal parapelvic cyst. Noperinephric abnormality is identified. The bladd er was mildly distended but otherwise unremarkable.Impression:1. Mild right hydr onephrosis.2. No renal calculus is identified.3. Left renal cysts.This final rep ort was electronically signed by Dr Patti Parson MD 03/26/201811:24 AMDictate d By: PATTI PARSONDate: 03/26/2018 11:24 Order: [id number] CT ABDOMEN/PELVIS W/O CONTRAST* Exam Completion Date:03/24/2018 03:25 EXAM: CT ABDOMEN/PELVIS W/O CONTRASTINDICATION: abdominal pain, nausea, vomitin gCOMPARISON: None TECHNIQUE: The abdomen and pelvis were scanned using a multid etector helicalscanner. Coronal and sagittal reformations were obtained. Dose mo dulation,iterative reconstruction, and/or weight based adjustment of the mA/kV w asutilized to reduce radiation dose to as low as reasonably achievable. RoutineP rotocol performed.IV Contrast: 100cc Isovue 300Oral Contrast: NoneFINDINGS:LOWER THORAX: Nonspecific 6 mm nodule right lung baseLIVER: No massesBILIARY: Choleli thiasis without CT findings of acute cholecystitis.SPLEEN: No massesPANCREAS: No massesADRENALS: No nodulesKIDNEYS: No nephroureterolithiasis or hydronephrosis. Simple cyst measuring 4.3cm superior pole of the left kidney. Left renal pelvic cyst. Nonspecific mildperinephric fat stranding.GI TRACT: There is a loop of di stal ileum in a right lower pelvic herniaresulting in obstruction. VESSELS: UnremarkablePERITONEUM/RETROPERITONEUM: No free air or fluidLYMPH NODES: No l ymphadenopathyREPRODUCTIVE ORGANS: NormalBLADDER: Partially decompressed. Bladde r wall appears trabeculated. Bladder domeis within a right inguinal hernia.SOFT TISSUES: Right inguinal hernia containing the bladder dome. Right lowerpelvic he rnia containing bowel, fluid and adjacent inflammation. Largefat-containing umbi lical hernia.BONES: No suspicious bone lesions.IMPRESSION:Right lower pelvic her wayne containing a loop of small bowel with resulting moreproximal bowel obstructi on. Small amount of fluid in the hernia sac and adjacentinflammation concerning for strangulation.Right inguinal hernia containing a part of the bladder.Large f at-containing umbilical hernia.Cholelithiasis.This final report was electronical ly signed by Dr Korina Mcleod MD 03/24/2018 4:43AMDictated By: KORINA MCLEODDate: 03/24/2018 04:43 Vital Signs Vitals Value Date Respiratory Rate 18 (breaths)/min 03/26/2018 Pulse Rate 72 (beats)/min 03/26/2018 O2% BldC Oximetry 98 % 03/26/2018 Body Temperature 97.2 F 03/26/2018 BP Systolic 152 mmHg 03/26/2018 BP Diastolic 67 mmHg 03/26/2018 Weight Measured 434.53 lbs 03/26/2018 Height 71 in 03/24/2018 BSA (Body Surface Area) 2.42323 m2 03/24/2018 BMI (Body Mass Index) 60.8 kg/m2 03/24/2018 Advance Directives Undefined Advance Directive Directive Type Effective Date Diabetes Specialist Notes Supporting Document Name Address Phone No Directive Type specified 08/22/2012 21:27 Not Specified Not Specified Not Specified None No Patient does NOT have Living Will Directive Type Effective Date Diabetes Specialist Notes Supporting Document Name Address Phone No Directive Type specified 03/24/2018 02:49 Not Specified Not Specified Not Specified None No Full Code Directive Type Effective Date Diabetes Specialist Notes Supporting Document Name Address Phone No Directive Type specified 03/24/2018 10:15 Not Specified Not Specified Not Specified None No Family History * Patient has no knowledge of Family History Plan of Care * No data in the system Procedures Code Code System Procedure Name Target Site Date of Procedure US RENAL & BLADDER (KIDNEYS) 03/26/2018 11:31 CT ABDOMEN/PELVIS W/O CONTRAST 03/24/2018 04:49 [id number] ICD10 SUPPLEMENT ADBOMINAL WALL SYN OPEN 03/24/2018 21948741 SNOMED Repair of umbilical hernia 2000 876111744 SNOMED Tonsillectomy Unknown Encounters Date Code Diagnosis Status (SNOMED-CT) - 387769610 INCISION HERNIA W/OBST W/O GANGRENE Active Immunizations Vaccine Code Code System Vaccine Name Date Status 141 CVX Influenza, seasonal, injectable Completed 33 CVX pneumococcal polysaccharide vaccine Completed PT NOT UP TO DATE FLU Completed Functional Status Code Functional/Cognitive Condition Code System Date Status 043644224 Ability to perform activities of everyday life (observable entity) SNOMED-CT 03/24/2018 Active 798355216 Ability to perform personal hygiene activity (observable entity) SNOMED-CT 03/24/2018 Active 658583627 Able to wash self SNOMED-CT 03/24/2018 Active 538779992 Ability to manage personal health care (observable entity) SNOMED-CT 03/24/2018 Active 353132947 Oriented to time SNOMED-CT 03/26/2018 Active [address] Orient[address] to place SNOMED-CT 03/26/2018 Active 991330295 Oriented to person SNOMED-CT 03/26/2018 Active 319618096 Stable gait (finding) [facility] 03/26/2018 Active 255573540 No speech problem (situation) [facility] 03/26/2018 Active 953891183 Wears glasses [facility] 03/26/2018 Active 832293708 Firm pressure touch, function (observable entity) [facility] 03/26/2018 Active 767717259 Orientated [facility] 03/26/2018 Active Hospital Discharge Instructions * Transfer* EMS Name:* [facility] * MOT Completed* Yes * Notified of Discharge/Transfer* EMS * Family * Report Given On* Current * IV Therapy * Transfer to:* [facility] * Other * Transfer Mode* Ambulance * Transfer to Another Facility* Yes * Receiving Facility* [facility] * Receiving Physician* cain * Chart Copied* Yes * With Patient
[2018-10-01 10:56] LABS: BASOPHILS # (AUTO) 0.1 (0.0-0.1); EOSINOPHILS # (AUTO) 0.3 (0.0-0.4); EOSINOPHILS % 3.9 % (0.0-6.0); HEMATOCRIT 49.3 % (38.2-49.6); HEMOGLOBIN 17.1 g/dL (14.0-18.0); LYMPHOCYTES # (AUTO) 1.8 (1.0-3.2); LYMPHOCYTES % 24.2 % (18.0-39.1); MEAN CORPUSCULAR HEMOGLOBIN 33.3 pg (28-32); MEAN CORPUSCULAR HGB CONC 34.7 g/dL (31-35); MEAN CORPUSCULAR VOLUME 95.9 fL (81-99); MONOCYTES # (AUTO) 0.9 (0.2-0.8); MONOCYTES % 11.9 % (4.4-11.3); NEUTROPHILS # (AUTO) 4.3 (2.1-6.9); NEUTROPHILS % 58.9 % (38.7-80.0); PLATELET COUNT 226 x10e3/uL (140-360); RED BLOOD COUNT 5.14 x10e6/uL (4.3-5.7); RED CELL DISTRIBUTION WIDTH 13.7 % (11.7-14.4)
[2018-10-01 11:03] LABS: ALBUMIN 3.4 g/dL (3.5-5.0); ALBUMIN/GLOBULIN RATIO 0.8 (0.8-2.0); CALCIUM 9.9 mg/dL (8.4-10.2); CREATININE, SERUM 1.31 mg/dL (0.72-1.25)
--- NOTE | 2018-10-01 11:13 | Diagnostic Imaging Report ---
EXAMINATION: CHEST 2 VIEWS INDICATION: Pre-op. COMPARISON: None FINDINGS: TUBES and LINES: None. LUNGS: Lungs are moderately inflated. There is no evidence of pneumonia or pulmonary edema. PLEURA: No pleural effusion or pneumothorax. HEART AND MEDIASTINUM: The cardiomediastinal silhouette is unremarkable. BONES AND SOFT TISSUES: No acute osseous abnormality. UPPER ABDOMEN: No free air under the diaphragm. IMPRESSION: No acute radiographic abnormality. Signed by: Dr. Roderick Coffman MD on 10/01/2018 11:10 AM
[2018-10-01 13:30] VITALS: BP 120/60
--- NOTE | 2018-10-02 04:04 | Operative Report ---
DATE OF PROCEDURE: 10/01/2018 SURGEON: Beverley Colmenares MD SERVICE: Urology. PREOPERATIVE DIAGNOSES: 1. History of urinary retention. 2. Buried penis. 3. Morbid obesity. 4. Urethral stricture. OPERATIONS PERFORMED: 1. Cystoscopy and urethral dilation. 2. Exposure and dissection of the penis out after being imbedded in the prepubic fat by doing 2 incisions, one dorsal and one ventral. Following this, the incision bleeding ports were carefully coagulated and the sutures in the opposite direction to open up the tissue by using a 3-0 and 2-0 chromic interrupted and running sutures. Following this, bacitracin ointment was applied and a 22-Greenlandic Singh catheter was inserted following the urethral dilation. DESCRIPTION OF THE PROCEDURE AND NOTE: This is a 73-year-old patient, who is morbidly obese. The patient has a chronic indwelling Singh and was brought for reassessment and possible surgery on the prostate. Of note that his penis is completely buried. The patient is aware that incision will be made to expose the penis before any further surgery is done. DESCRIPTION OF THE PROCEDURE AND FINDINGS: After the appropriate level of anesthesia was achieved, the patient was placed in lithotomy position, prepped and draped in the usual sterile fashion. The Singh catheter was kept in place. At this point, incisions were made dorsally and ventrally and dissection allowed to expose the glans penis, which was quite deep on the fat. The skin was closed in the opposite direction using a 2-0 and 3-0 running and interrupted sutures. Following this, the Singh was removed after inserting guidewire for safety. The urethra was inspected, appeared to be somewhat new and dilated to 24-Greenlandic. It was impossible really to reach the bladder comfortably with the semi-rigid regular cystoscope due to the length of the urethra. Therefore, we selected not to proceed with any surgery on the prostate, of course it is quite large composed of two very large lateral lobes and median lobes. The guidewire was kept in place and a 22-Greenlandic [place] Tip type of catheter was inserted and inflated with 15 mL of water. A dressing was applied. B and O suppository was placed. The patient was transferred in satisfactory condition to recovery room. After healing incisions, arrangements will be made for surgery of the prostate with especially instruments. MD CUCA Mary/LOBITO /[id number]
== END | disposition home or self-care (01) ==
LOC: OR 08:54
PROVIDERS: ATTEND Urology
DX: N48.83 Acquired buried penis (principal); N21.0 Calculus in bladder; N35.919 Unspecified urethral stricture, male, unspecified site; E66.01 Morbid (severe) obesity due to excess calories; I10 Essential (primary) hypertension; I44.0 Atrioventricular block, first degree; I49.3 Ventricular premature depolarization; Z88.1 Allergy status to other antibiotic agents; Z79.02 Long term (current) use of antithrombotics/antiplatelets; Z86.718 Personal history of other venous thrombosis and embolism
CPT/HCPCS: 36415; 52310; 52450; 54300; 71046; 80053; 85025; 87086; 88300; 93005; C1758; J0690; J1100; J2001; J2250; J2405; J2704; Q9967

== ENCOUNTER 2018-11-07 01:16 | Emergency (ER) | payer MEDICARE, OTHER ==
[~2018-11-07] VITALS: Ht 180.3 cm; Wt 176.9 kg
[~2018-11-07 01:16] MED LIST changes: -BELLADONNA/OPIUM 60 MG SUPP PR ONE; -CEFAZOLIN SOD 2 GM/D5W 50ML 50 ML IV ONE; -DESFLURANE 240 ML BTL INH ONE; -DEXAMETHASONE SOD PHOS INJ 4 MG/ML VIAL ONE; -FENTANYL CITRATE/PF 100MCG/2 ML INJ ONE; -IOPAMIDOL 610MG/1ML 300 MG/ML VIAL IV ONE; -LIDOCAINE HCL 2% LOCAL INJ 5 ML SDV VIAL INJ ONE; -MIDAZOLAM HCL 2 MG/2 ML VIAL ONE; -MUPIROCIN 2% OINT 22 GM TUBE ONE; -NEOSTIGMINE 5 MG/5ML SYR ONE; -ONDANSETRON HCL INJ 2MG/ML 2ML 2 MG/ML VIAL ONE; -PROPOFOL IV EMULSION 10 MG/ML 20 ML VIAL ONE; -ROCURONIUM BROMIDE 10 MG/ML 5ML VIAL ONE; -SUCCINYLCHOLINE 200 MG/10 ML SYR ONE
--- OUTSIDE RECORDS SUMMARY | 2018-11-07 01:18 | XMS REPORT ---
Author Author [facility] Address Unknown Phone Unavailable Care Team Providers Care Research Kennel Supervisor Name Role Phone ABRAN BLANCAS Unavailable Unavailable Problems This patient has no known problems. Allergies, Adverse Reactions, Alerts This patient has no known allergies or adverse reactions. Medications This patient has no known medications. Results Test Description Test Time Test Comments Text Results Atomic Results Result Comments CHEST 2 VIEWS 2018-10-01 11:08:00 [place] [id number] Patient Name: SANDER RAMOS MR #: [id number] : 1945 Age/Sex: 73/M Req #: [id number] Adm Physician: Ordered by: ABARN BLANCAS MD Report #: [id number] Location: OR Room/Bed: Procedure: [id number] DX/CHEST 2 VIEWS Exam Date: 10/01/18 Exam Time: 1010 REPORT STATUS: Signed EXAMINATION: CHEST 2 VIEWS INDICATION: Pre-op. COMPARISON: None FINDINGS: TUBES and LINES: None. LUNGS: Lungs are moderately inflated. There is no evidence of pneumonia or pulmonary edema. PLEURA: No pleural effusion or pneumothorax. HEART AND MEDIASTINUM: The cardiomediastinal silhouette is unremarkable. BONES AND SOFT TISSUES: No acute osseous abnormality. UPPER ABDOMEN: No free air under the diaphragm. IMPRESSION: No acute radiographic abnormality. Signed by: Dr. Galina Watson MD on 10/01/2018 11:10 AM Dictated By: GALINA WATSON MD 111 Transcribed By: LUDMILA on 10/01/18 1110 COPY TO: ABRAN BLANCAS MD
--- NOTE | 2018-11-07 02:30 | NUR ---
DR AREVALO HERE AT THIS TIME, TO CHANGE OUT PT DOAN CATH FOR URINARY RETENTION. PT STATES DOAN STOPPED DRAINING ABOUT 10P, AND AFTER TRYING TO IRRIGATE DOAN WITHOUT SUCCESS, DECIDED TO COME IN TO THE ER.
[2018-11-07 03:06] LABS: BASOPHILS # (AUTO) 0.1 (0.0-0.1); BASOPHILS % 0.7 % (0.0-1.0); EOSINOPHILS # (AUTO) 0.2 (0.0-0.4); EOSINOPHILS % 1.8 % (0.0-6.0); HEMATOCRIT 46.8 % (38.2-49.6); HEMOGLOBIN 16.7 g/dL (14.0-18.0); LYMPHOCYTES # (AUTO) 1.9 (1.0-3.2); LYMPHOCYTES % 20.6 % (18.0-39.1); MEAN CORPUSCULAR HEMOGLOBIN 33.6 pg (28-32); MEAN CORPUSCULAR HGB CONC 35.7 g/dL (31-35); MEAN CORPUSCULAR VOLUME 94.2 fL (81-99); MONOCYTES # (AUTO) 0.9 (0.2-0.8); MONOCYTES % 10.2 % (4.4-11.3); NEUTROPHILS # (AUTO) 6.1 (2.1-6.9); NEUTROPHILS % 66.4 % (38.7-80.0); PLATELET COUNT 200 x10e3/uL (140-360); RED BLOOD COUNT 4.97 x10e6/uL (4.3-5.7); RED CELL DISTRIBUTION WIDTH 13.7 % (11.7-14.4)
[2018-11-07 03:07] LABS: BILIRUBIN,URINE NEGATIVE (NEGATIVE); CLARITY,URINE CLOUDY (CLEAR); COLOR,URINE YELLOW (YELLOW); KETONES,URINE NEGATIVE (NEGATIVE); NITRITE,URINE NEGATIVE (NEGATIVE); PROTEIN,URINE DIPSTICK 1+ (NEGATIVE); URINE UROBILINOGEN 0.2 mg/dL (0.2 - 1)
[2018-11-07 03:10] LABS: LEUKOCYTE ESTERASE ,URINE 2+ (NEGATIVE)
[2018-11-07 03:12] LABS: BACTERIA,URINE RARE /HPF; EPITHELIAL CELLS,URINE RARE /LPF; RBC,URINE 21-50 /HPF (0-5)
[2018-11-07 03:22] LABS: ANION GAP 14.4 mmol/L (8-16); CALCIUM 9.9 mg/dL (8.4-10.2); CREATININE, SERUM 1.23 mg/dL (0.72-1.25); POTASSIUM 3.4 mmol/L (3.5-5.1)
[2018-11-07 04:11] VITALS: BP 149/69
--- NOTE | 2018-11-07 04:23 | Consultation ---
DATE OF CONSULTATION: 11/07/2018 Consultation is called by Dr. Kay, emergency room. CHIEF COMPLAINT AND REASON FOR CONSULTATION: Urinary retention, noncompliance, obesity. HISTORY OF PRESENT ILLNESS: Mr. Lyon is a 73-year-old patient of [facility], who has been noncompliant with catheter followup. He states he is on the schedule for transurethral resection of prostate, however, his surgery was cancelled. He now presents with decreasing urine output over the last 4 hours. He is morbidly obese and presents to the ER at his convenience for catheter changes. PAST MEDICAL HISTORY: Please see previous notes. MEDICATIONS: Please see MAR. ALLERGIES: NKDA. SOCIAL HISTORY: Not smoking or drinking. FAMILY HISTORY: Denied urologic stones or malignancies. REVIEW OF SYSTEMS: Noncontributory other than problems mentioned above for 12 organ systems. PHYSICAL EXAMINATION: GENERAL: Elderly male, in no acute distress. VITAL SIGNS: Currently, he is afebrile with stable vital signs. Temperature 98.7, pulse 63, respirations 16, and blood pressure 130/56. HEENT: Sclerae anicteric. NECK: Supple. BACK: Without costovertebral angle tenderness bilaterally. ABDOMEN: Soft. It is obese, is nontender, and nondistended. No palpable mass. No palpable hernias. No palpable adenopathy. : Normal male external genitalia, buried completely by his pannus. EXTREMITIES: 4+ edema. NEURO: Moves all four extremities. PSYCH: Alert and appropriate. SKIN: Intact, normal color. PERTINENT LABORATORY DATA: Pending at time of dictation. IMPRESSION: 1. Urinary retention. 2. Noncompliance. 3. Morbid obesity. 4. Urethral stricture disease. 5. Hypertension. PLAN: Procedure note: Utilizing a guidewire filiform and followers, I was able to place an 18-[place] tip catheter into the bladder, a return of 200 mL of blood- tinged urine was returned. The catheter irrigates freely. With the patient's obesity, I explained to the patient he needs to either lose weight or have a bariatric-type surgery, as this facility cannot even perform a CAT scan on him. The patient's hypertension appears to be controlled on blood pressure medicines. The patient has Singh catheter that needs to be changed regularly. I again reminded the patient on the need for compliance. Thank you for allowing me to participate in the care of your patient. MD KATHERINE Heck/LOBITO /[id number] MTDD
[2018-11-10] MEDS ORDERED: ASPIR 8181 MG PO (12:50)
== END 2018-11-07 04:30 | disposition home or self-care (01) ==
LOC: ER 01:16
DX: R33.9 Retention of urine, unspecified (principal); N40.1 Benign prostatic hyperplasia with lower urinary tract symptoms; I10 Essential (primary) hypertension; N35.919 Unspecified urethral stricture, male, unspecified site; E66.01 Morbid (severe) obesity due to excess calories; Z91.19 Patient's noncompliance with other medical treatment and regimen
CPT/HCPCS: 36415; 80048; 81001; 85025; 87086; 87186; 99283

== ENCOUNTER 2018-12-24 08:50 | Inpatient (IN) | payer MEDICARE ==
[~2018-12-24] VITALS: Ht 180.3 cm; Wt 174.2 kg
[2018-12-24] VITALS: BP 111/56
[~2018-12-24 08:50] MED LIST changes: +ASPIR 8181 MG PO
[2018-12-24] MEDS ORDERED: VANCOMYCIN 1GM/NS 250 ML 250 ML ONE (09:43)
[2018-12-24 10:24] LABS: BASOPHILS # (AUTO) 0.1 (0.0-0.1); BASOPHILS % 0.9 % (0.0-1.0); EOSINOPHILS # (AUTO) 0.1 (0.0-0.4); EOSINOPHILS % 1.4 % (0.0-6.0); LYMPHOCYTES # (AUTO) 1.9 (1.0-3.2); LYMPHOCYTES % 23.6 % (18.0-39.1); MEAN CORPUSCULAR HEMOGLOBIN 33.1 pg (28-32); MEAN CORPUSCULAR VOLUME 97.3 fL (81-99); MONOCYTES # (AUTO) 0.8 (0.2-0.8); MONOCYTES % 9.6 % (4.4-11.3); NEUTROPHILS # (AUTO) 5.2 (2.1-6.9); NEUTROPHILS % 64.1 % (38.7-80.0); PLATELET COUNT 250 x10e3/uL (140-360); RED BLOOD COUNT 4.83 x10e6/uL (4.3-5.7); RED CELL DISTRIBUTION WIDTH 13.6 % (11.7-14.4)
[2018-12-24] MEDS ORDERED: IOPAMIDOL 610MG/1ML 300 MG/ML VIAL IV ONE ×2 (10:41→12:04)
[2018-12-24] MEDS ORDERED: TOBRAMYCIN IV ONE (10:45)
[2018-12-24] MEDS ORDERED: SODIUM CHLORIDE 0.9% IV ONE (10:45)
[2018-12-24 10:51] LABS: ANION GAP 15.6 mmol/L (8-16); CALCIUM 9.9 mg/dL (8.4-10.2); CREATININE, SERUM 1.35 mg/dL (0.72-1.25); POTASSIUM 4.6 mmol/L (3.5-5.1)
[2018-12-24] MEDS ORDERED: B&O 60MG R/S 60 MG SUPP PR ONE (12:24)
--- NOTE | 2018-12-24 15:15 | NUR ---
Pt arrived via stretcher, with assist x3. at bedside. CBI in place and flowing per order. Singh bag to gravity. Light pink tinged colored collected in drainage bag. No c/o pain. IV fluids being administered at this time. A&O x3. Resp WNL. Call light within reach, bed in lowest position and locked.
[2018-12-24 17:13] VITALS: BP 143/79
[2018-12-24 17:17] VITALS: BP 143/79
[2018-12-24 17:21] VITALS: BP 137/68
[2018-12-24] MEDS ORDERED: SEVOFLURANE INHAL SOLN 250 ML PEN BTL ONE (19:30)
[2018-12-24] MEDS ORDERED: DEXAMETHASONE SOD PHOS INJ 4 MG/ML VIAL ONE (19:30)
[2018-12-24] MEDS ORDERED: EPHEDRINE SULFATE INJ 50 MG/10 ML SYR ONE (19:30)
[2018-12-24] MEDS ORDERED: LIDOCAINE HCL 2% LOCAL INJ 5 ML SDV VIAL INJ ONE (19:30)
[2018-12-24] MEDS ORDERED: GLYCOPYRROLATE INJ 1MG/ 5 ML SYR ONE (19:30)
[2018-12-24] MEDS ORDERED: SUCCINYLCHOLINE 200 MG/10 ML SYR ONE (19:30)
[2018-12-24] MEDS ORDERED: PROPOFOL IV EMULSION 10 MG/ML 20 ML VIAL ONE (19:30)
[2018-12-24] MEDS ORDERED: ONDANSETRON HCL INJ 2MG/ML 2ML 2 MG/ML VIAL ONE (19:30)
[2018-12-24] MEDS ORDERED: ROCURONIUM BROMIDE 10 MG/ML 5ML VIAL ONE (19:30)
[2018-12-24] MEDS ORDERED: NEOSTIGMINE 5 MG/5ML SYR ONE (19:30)
[2018-12-24 19:50] VITALS: BP 108/58
--- NOTE | 2018-12-24 19:50 | NUR ---
CONTINUOUS BLADDER IRRIGATION INFUSING, URINE COLOR PINK WITHOUT CLOTS AND PATIENT DENIES PAIN. LARGE WOUND TO THE RIGHT THIGH WITH FOUL ODOR, WILL CONSULT WOUND CARE. NON PITTING EDEMA TO THE LEGS, DISCOLORATION OBSERVED TO THE LEGS. CALL LIGHT WITHIN EASY REACH, PATIENT INSTRUCTED TO CALL FOR ASSISTANCE NEEDED.
[2018-12-24] MEDS ORDERED: FENTANYL CITRATE/PF 100MCG/2 ML INJ ONE (19:59)
[2018-12-24 20:00] VITALS: BP 108/58
--- NOTE | 2018-12-24 21:54 | Operative Report ---
DATE OF PROCEDURE: 12/24/2018 SURGEON: Beverley Colmenares MD SERVICE: Urology. PREOPERATIVE DIAGNOSES: 1. Longstanding urinary retention. 2. Ureteral stricture. 3. Bladder stones. 4. Urethral and prostatic stones. 5. Urethral stricture. 6. Morbid obesity, an extremely long urethra and prostate. POSTOPERATIVE DIAGNOSES: 1. Longstanding urinary retention. 2. Ureteral stricture. 3. Bladder stones. 4. Urethral and prostatic stones. 5. Urethral stricture. 6. Morbid obesity, an extremely long urethra and prostate. OPERATION PERFORMED: 1. Cystogram under fluoroscopic control. 2. Transurethral resection of the prostate, extremely complicated due to the long position of the prostate and the morbid obesity that make any surgery of the prostate quite complicated. 3. Interpretation of x-ray for the cystogram and full urethral dilation. COMPREHENSIVE OPHTHALMOLOGIST: None. ANESTHESIA: General. CLINICAL INDICATION NOTE: This is a 73-year-old morbidly obese patient had a long history of urethral stricture and failed a trial of voiding. Of note, he had also a buried penis that require surgery to expose it. Of note, he states previous attempt to do the surgery with regular size resectoscope and cystoscope were unsuccessful due to the shortness of the instruments and failure to reach the bladder. Therefore, presently he is brought for treatment with especially all the very long instruments. The patient was advised about the complexity of the procedure, potential benefit and complication discussed with him and his . DESCRIPTION OF PROCEDURE AND FINDINGS: After appropriate level of anesthesia was achieved, the patient was placed in lithotomy position, prepped and draped in a sterile fashion. The urethra appeared to be somewhat narrow to the instrument and therefore it was dilated to 28-Turkmen. The special resection sheath was then inserted under direct vision, advanced. It did barely reach the bladder even now. Stones were present and they were crushed and removed from the bladder. Additional stones were present in various small pockets in the prostatic urethra. Cystogram was done demonstrating the adequate capacity of the bladder. No reflux was seen. This was followed by transurethral resection of the prostate. Due to the length of his urethra and the limited mobility to the sides, the procedure was somewhat difficult. After completing the resection, Crede demonstrated good flow. Any visible bleeding points were carefully coagulated before removing the instrument. A 26-Turkmen 30 mL Singh catheter was properly positioned in the bladder and this again was verified with x-ray. It was connected to continuous irrigation with normal saline. The patient tolerated procedure well and was transferred in satisfactory condition to recovery room. His primary physician, Dr. Huber Murdock, will admit him for further medical care of the other problems that he is having. Of note, stones were sent for analysis, prostatic chips were sent to Pathology. Beverley Colmenares MD KS/MICHEALL /[id number]
--- NOTE | 2018-12-24 23:40 | NUR ---
PATIENT CONDITION STABLE WITHOUT RESPIRATORY DISTRESS OBSERVED, HE DENIES PAIN. CBI INFUSING, URINE COLOR LIGHT PINK WITHOUT CLOTS. CALL LIGHT WITHIN EASY REACH, INSTRUCTED TO CALL FOR ASSISTANCE NEEDED.
--- NOTE | 2018-12-25 03:05 | NUR ---
NO ACUTE DISTRESS OBSERVED, PATIENT DENIES PAIN. URINE COLOR CLEAR YELLOW, CBI INFUSING ORDERED.
[2018-12-25 04:00] VITALS: BP 109/53
--- NOTE | 2018-12-25 07:00 | NUR ---
received am report from RN, morning rounds done. pt is awake, alert, no s/s of distress. family is at the bedside
--- NOTE | 2018-12-25 08:01 | NUR ---
Dr. Meredith rounded this am, gave instructions to stop CBI and continue to monitor output in hernández. CBI is now clamped.
[2018-12-25 08:12] VITALS: BP 102/52
--- NOTE | 2018-12-25 09:05 | NUR ---
H&P cc: urinary retention HPI; 73yoM, a clinic pt, with urinary retention and chronic hernández use, now for TURP. underwent procedure, now resting comfortably. PMH: PAF, GERD, Peripheral edema, Morbid obesity, urinary retention, Complicated UTIs, BPH PSHx: cystoscopy Allergies; see emr Fh/SH; ; no illicits meds; see MAR ROS no f/c/s/N/V/D/KHAN/vision changes/cp/sob v/s; revd PE: tired appearing anicteric ns1s2 mod bs soft nt nd : hernández with bloody urine trace leg edema; SCD skin dry n. affect labs/med; revd A/P: Urinary retention BPH PAF Peripheral edema GERD Physical deconditioning Severe obesity BMI 53.6 PLAN: s/p TURP bladder irrigation. Home meds SCD Pain control Darell Murdock MD, PhD.
[2018-12-25 09:30] VITALS: BP 102/52
[2018-12-25 12:10] VITALS: BP 121/57
--- NOTE | 2018-12-25 14:07 | NUR ---
WOUND CARE NURSE INITIAL CONSULTATION. HEAD TO TOE SKIN ASSESSMENT PERFORMED TODAY. PT STATES THAT HE HAD A SURGERY A MONTH AGO WHEN ASKED WHAT TYPE OF SURGERY HE HAD DONE HE SAID "THEY HAD TO UNCOVER MU PENIS". PER PT, THE COMPRESSION HOSES THAT HE HAD WHERE TOO TIGHT AND WERE CUTTING ON HIS RIGHT THIGH. PT PRESENTS WITH A 1X15X0.2CM WOUND TO RIGHT UPPER THIGH, 100% NECROTIC WITH ESCHAR AND SLOUGH. NO S/S OF INFECTION. BLANCHABLE REDNESS TO BILATERAL LATERAL FOOT. IS ALSO NOTED. NO OTHER AREAS OF CONCERN NOTED AT THIS TIME. RECOMMENDATIONS: CLEAN RIGHT LATERAL THIGH WITH NS, APPLY SANTYL AND COVER WITH MOIST 4X4 GAUZE AND TAPE. CHANGE DRESSING DAILY. PROVIDE PT WITH BILATERAL HEEL PROTECTORS. TURN PT EVERY TWO HOURS AND PRN. THANKS FOR THIS CONSULTATION. Addendum: 12/25/18 at 1415 by Joyce Cazares RN Amended: Links added.
[2018-12-25 16:20] VITALS: BP 120/57
[2018-12-25] MEDS: FUROSEMIDE 40 MG TAB PO SCH (18:07)
[2018-12-25 20:00] VITALS: BP 135/59
--- NOTE | 2018-12-25 20:00 | NUR ---
PATIENT RESTING IN BED, NO DISTRESS OBSERVED AND HE DENIES PAIN. DOAN CATHETER INTACT WITH CBI INFUSING AT A VERY SLOW RATE, URINE COLOR YELLOW WITHOUT CLOTS. CALL LIGHT WITHIN EASY REACH, PATIENT INSTRUCTED TO CALL FOR ASSISTANCE NEEDED.
--- NOTE | 2018-12-25 23:42 | NUR ---
PATIENT C/O BEEN VERY HOT, POLICY CANCELLATION CLERK NOTIFIED AND SHE HAS PLACE A CALL FOR MAINTENANCE TO COME AND ADJUST THE AC.
[2018-12-26] VITALS (8 sets, daily range): BP systolic 120–139; BP diastolic 58–72
--- NOTE | 2018-12-26 02:43 | NUR ---
ROUNDS MADE, PATIENT RESTING COMFORTABLY IN BED. NO DISTRESS OBSERVED, HE DENIES PAIN. URINE COLOR CLEAR WITHOUT CLOTS.
--- NOTE | 2018-12-26 07:44 | NUR ---
RECEIVED PATIENT AWAKE RESTING IN BED. NO SIGNS OF DISTRESS. BED LOW, WHEELS LOCKED, SIDE RAILS X2. CALL LIGHT IN REACH WILL CONTINUE TO MONITOR PATIENT.
--- NOTE | 2018-12-26 08:51 | NUR ---
IM- progress note O/N no events ROS no f/c/s/N/V/D/KHAN/vision changes/cp/sob v/s; revd PE: tired appearing anicteric ns1s2 mod bs soft nt nd : hernández with bloody urine trace leg edema; SCD skin dry n. affect labs/med; revd A/P: Urinary retention BPH PAF Peripheral edema GERD Physical deconditioning Severe obesity BMI 53.6 PLAN: s/p TURP bladder irrigation. Home meds SCD Pain control 12/26 check labs Darell Murdock MD, PhD.
[2018-12-26] MEDS: FAMOTIDINE 20 MG TAB PO SCH (09:01)
[2018-12-26] MEDS: COLLAGENASE OINTMENT 30 GM TUBE TP SCH (09:01)
[2018-12-26] MEDS: FUROSEMIDE 40 MG TAB PO SCH ×2 (09:01→16:20)
[2018-12-26 09:16] LABS: BASOPHILS # (AUTO) 0.1 (0.0-0.1); BASOPHILS % 0.8 % (0.0-1.0); EOSINOPHILS # (AUTO) 0.1 (0.0-0.4); EOSINOPHILS % 1.8 % (0.0-6.0); HEMOGLOBIN 13.3 g/dL (14.0-18.0); LYMPHOCYTES # (AUTO) 2.1 (1.0-3.2); MEAN CORPUSCULAR HEMOGLOBIN 33.6 pg (28-32); MEAN CORPUSCULAR HGB CONC 34.1 g/dL (31-35); MEAN CORPUSCULAR VOLUME 98.5 fL (81-99); MONOCYTES # (AUTO) 0.7 (0.2-0.8); MONOCYTES % 9.3 % (4.4-11.3); NEUTROPHILS # (AUTO) 4.9 (2.1-6.9); NEUTROPHILS % 61.6 % (38.7-80.0); PLATELET COUNT 186 x10e3/uL (140-360); RED BLOOD COUNT 3.96 x10e6/uL (4.3-5.7); RED CELL DISTRIBUTION WIDTH 13.9 % (11.7-14.4)
[2018-12-26 09:34] LABS: ANION GAP 13.8 mmol/L (8-16); CREATININE, SERUM 1.32 mg/dL (0.72-1.25); POTASSIUM 3.8 mmol/L (3.5-5.1)
--- NOTE | 2018-12-26 09:45 | NUR ---
PATIENT A/O X3, EVEN RESPIRATIONS ON RA. BM THIS MORNING. DOAN IN PLACE WITH LIGHT CASE URINE. RIGHT THIGH WOUND, WOUND CARE DONE THIS MORNING. RIGHT HAND 20 GAUGE IV SL. VITAL SIGNS STABLE. NO PAIN OR DISCOMFORT AT THIS TIME. CALL LIGHT IN REACH. WILL CONTINUE TO MONITOR PATIENT.
--- NOTE | 2018-12-26 20:05 | NUR ---
PATIENT SITTING UP IN THE RECLINER, NO RESPIRATORY DISTRESS OBSERVED. DOAN CATHETER PATENT AND INTACT, DRAINING CLEAR YELLOW COLOR URINE.NO PAIN VOICED, CALL LIGHT WITHIN EASY REACH.
--- NOTE | 2018-12-26 23:35 | NUR ---
PATIENT JUST GOT BACK FROM THE RESTROOM, HIS DOAN CATHETER REMAINS CLEAR YELLOW. DRESSING REINFORCED TO THE RIGHT THIGH WOUND, PATIENT INSTRUCTED TO CALL FOR ASSISTANCE NEEDED.
[2018-12-27 00:01] VITALS: BP 116/55
--- NOTE | 2018-12-27 04:05 | NUR ---
ROUNDS MADE, PATIENT SOUNDLY ASLEEP IN THE RECLINER, HE'S EASY TO AROUSE. URINE COLOR REMAINS CLEAR YELLOW, HE DENIES PAIN.
[2018-12-27 04:53] VITALS: BP 119/68
--- NOTE | 2018-12-27 07:05 | NUR ---
RECEIVED PATIENT AWAKE RESTING IN CHAIR NO SIGNS OF DISTRESS. RECLINER WHEELS LOCKED AND CALL LIGHT IN REACH. WILL CONTINUE TO MONITOR PATIENT.
[2018-12-27 08:13] VITALS: BP 145/67
[2018-12-27] MEDS: FAMOTIDINE 20 MG TAB PO SCH (08:35)
[2018-12-27] MEDS: COLLAGENASE OINTMENT 30 GM TUBE TP SCH (08:35)
[2018-12-27] MEDS: FUROSEMIDE 40 MG TAB PO SCH (08:35)
[2018-12-27 09:55] VITALS: BP 145/67
--- NOTE | 2018-12-27 11:00 | NUR ---
SPOKE WITH DR. AREVALO REGARDING DISCHARGE. OK TO SEND PATIENT HOME WITH LARGE DOAN BAG DUE TO WOUND FROM PREVIOUS LEG BAG.
[2018-12-27 11:53] VITALS: BP 134/72
--- NOTE | 2018-12-27 13:20 | NUR ---
PATIENT DISCHARGED FROM FACILITY. PATIENT GATHERED ALL PERSONAL BELONGINGS, DISCHARGE INSTRUCTIONS AND FOLLOW UP INFORMATION. LEFT UNIT IN WHEELCHAIR AND WENT HOME VIA PRIVATE AUTO. NO SIGNS OF DISTRESS WHEN LEAVING FACILITY.
--- NOTE | 2018-12-27 20:59 | NUR ---
D/C summary Principal dx; Urinary retention BPH PAF Peripheral edema Physical deconditioning secondary dx: GERD Severe obesity BMI 53.6 PLAN: s/p TURP bladder irrigation. Home meds SCD Pain control 12/26 check labs d/c home f/u pcp 1 week and urology 2 weeks stable d/c>35mins Darell Murdock MD, PhD.
== END 2018-12-27 13:20 | disposition home or self-care (01) | DRG 666 ==
LOC: OR 08:50 → PACU V 13:53 → MED/SURG 14:56
PROVIDERS: ADMIT Internal Medicine; ATTEND Internal Medicine
PROC: BT1B1ZZ Fluoroscopy of Bladder and Urethra using Low Osmolar Contrast (ICD-10-PCS; 2018-12-24)
PROC: 0VB08ZZ Excision of Prostate, Via Natural or Artificial Opening Endoscopic (ICD-10-PCS; principal; 2018-12-24 11:03)
PROC: 0TCB8ZZ Extirpation of Matter from Bladder, Via Natural or Artificial Opening Endoscopic (ICD-10-PCS; 2018-12-24 11:03)
PROC: 0T7D8ZZ Dilation of Urethra, Via Natural or Artificial Opening Endoscopic (ICD-10-PCS; 2018-12-24 11:03)
DX: N21.0 Calculus in bladder (principal); Z68.43 Body mass index [BMI] 50.0-59.9, adult; R33.9 Retention of urine, unspecified; N42.0 Calculus of prostate; N13.5 Crossing vessel and stricture of ureter without hydronephrosis; N21.1 Calculus in urethra; N35.919 Unspecified urethral stricture, male, unspecified site; E66.01 Morbid (severe) obesity due to excess calories; N48.83 Acquired buried penis; N18.2 Chronic kidney disease, stage 2 (mild); D64.9 Anemia, unspecified; R55 Syncope and collapse; G47.33 Obstructive sleep apnea (adult) (pediatric); I83.90 Asymptomatic varicose veins of unspecified lower extremity; Z86.718 Personal history of other venous thrombosis and embolism; Z79.01 Long term (current) use of anticoagulants; K21.9 Gastro-esophageal reflux disease without esophagitis; I48.0 Paroxysmal atrial fibrillation; N40.0 Benign prostatic hyperplasia without lower urinary tract symptoms; R53.81 Other malaise; S70.921A Unspecified superficial injury of right thigh, initial encounter
CPT/HCPCS: 36415; 51700; 74430; 80048; 85025; 88300; 88305; 93005; C1758; J1100; J2001; J2405; J3010; J3260; J3370

== ENCOUNTER 2022-08-12 18:56 | Inpatient (IN) | payer MEDICARE, OTHER ==
[~2022-08-12] VITALS: Ht 180.3 cm; Wt 126.6 kg
[2022-08-12 19:38] LABS: BASOPHILS # (AUTO) 0.1 (0.0-0.1); BASOPHILS % 0.7 % (0.0-1.0); EOSINOPHILS # (AUTO) 0.2 (0.0-0.4); EOSINOPHILS % 1.9 % (0.0-6.0); HEMATOCRIT 35.5 % (38.2-49.6); HEMOGLOBIN 11.1 g/dL (14.0-18.0); LYMPHOCYTES # (AUTO) 1.3 (1.0-3.2); LYMPHOCYTES % 15.9 % (18.0-39.1); MEAN CORPUSCULAR HEMOGLOBIN 30.6 pg (28-32); MEAN CORPUSCULAR HGB CONC 31.3 g/dL (31-35); MEAN CORPUSCULAR VOLUME 97.8 fL (81-99); MONOCYTES # (AUTO) 0.6 (0.2-0.8); MONOCYTES % 7.2 % (4.4-11.3); NEUTROPHILS # (AUTO) 6.2 (2.1-6.9); NEUTROPHILS % 73.8 % (38.7-80.0); PLATELET COUNT 213 x10e3/uL (140-360); RED BLOOD COUNT 3.63 x10e6/uL (4.3-5.7); RED CELL DISTRIBUTION WIDTH 16.7 % (11.7-14.4)
[2022-08-12 19:50] LABS: INR 0.95; PROTHROMBIN TIME 12.9 seconds (11.9-14.5)
[2022-08-12 19:51] LABS: PARTIAL THROMBOPLASTIN TIME 37.9 seconds (23.8-35.5)
[2022-08-12 19:59] LABS: ALBUMIN 2.5 g/dL (3.5-5.0); ALBUMIN/GLOBULIN RATIO 0.4 (0.8-2.0); CALCIUM 9.9 mg/dL (8.4-10.2); CREATININE, SERUM 3.28 mg/dL (0.72-1.25)
[2022-08-12] MEDS ORDERED: ONDANSETRON HCL INJ 2MG/ML 2ML 2 MG/ML VIAL IV PRN (20:45)
[2022-08-12] MEDS: SODIUM CHLORIDE 0.9% 1000ML 1,000 ML IV SCH (21:41)
[2022-08-12 23:50] VITALS: BP 104/64
[2022-08-13] VITALS (8 sets, daily range): BP systolic 99–112; BP diastolic 62–77
[2022-08-13] MEDS ORDERED: MICONAZOLE TOP (05:16)
[2022-08-13] MEDS ORDERED: ONDANSETRON ODT4 MG PO (05:16)
[2022-08-13] MEDS ORDERED: POTASSIUM CHLO20 ME1 PO (05:16)
[2022-08-13] MEDS ORDERED: SENNA PLUS 8.61 EACH PO (05:16)
[2022-08-13] MEDS ORDERED: FLOMAX0.4 MG PO (05:16)
[2022-08-13] MEDS ORDERED: PEPCID20 MG PO (05:16)
[2022-08-13 06:11] LABS: BASOPHILS # (AUTO) 0.1 (0.0-0.1); EOSINOPHILS # (AUTO) 0.2 (0.0-0.4); EOSINOPHILS % 2.9 % (0.0-6.0); HEMATOCRIT 31.4 % (38.2-49.6); LYMPHOCYTES # (AUTO) 1.3 (1.0-3.2); LYMPHOCYTES % 21.4 % (18.0-39.1); MEAN CORPUSCULAR HEMOGLOBIN 32.4 pg (28-32); MEAN CORPUSCULAR HGB CONC 31.8 g/dL (31-35); MEAN CORPUSCULAR VOLUME 101.6 fL (81-99); MONOCYTES # (AUTO) 0.5 (0.2-0.8); MONOCYTES % 8.5 % (4.4-11.3); NEUTROPHILS % 65.7 % (38.7-80.0); PLATELET COUNT 162 x10e3/uL (140-360); RED BLOOD COUNT 3.09 x10e6/uL (4.3-5.7); RED CELL DISTRIBUTION WIDTH 16.9 % (11.7-14.4)
[2022-08-13] MEDS: SODIUM CHLORIDE 0.9% 1000ML 1,000 ML IV SCH ×2 (06:11→14:24)
[2022-08-13 06:31] LABS: ALBUMIN 2.1 g/dL (3.5-5.0); ALBUMIN/GLOBULIN RATIO 0.4 (0.8-2.0); ANION GAP 13.7 mmol/L (8-16); CALCIUM 9.6 mg/dL (8.4-10.2); CREATININE, SERUM 3.15 mg/dL (0.72-1.25); POTASSIUM 3.7 mmol/L (3.5-5.1)
[2022-08-13 12:34] LABS: HEMATOCRIT 34.2 % (38.2-49.6); HEMOGLOBIN 10.7 g/dL (14.0-18.0)
[2022-08-13] MEDS ORDERED: ACETAMINOPHEN 325 MG TAB PO PRN (15:00)
[2022-08-13] MEDS ORDERED: HYDRALAZINE HCL 20 MG/ML VIAL IV PRN (15:00)
[2022-08-13] MEDS ORDERED: POLYETHYLENE GLYCOL 3350 17 GM PACK PO PRN (15:00)
[2022-08-13] MEDS ORDERED: NYSTATIN 15 GM POWDER UD BTL TOP SCH (15:30)
[2022-08-13] MEDS: CIPROFLOXACIN 500 MG TAB PO SCH ×2 (16:12→23:02)
[2022-08-13] MEDS: DOCUSATE SODIUM 100 MG CAP PO SCH (17:49)
[2022-08-13] MEDS: FAMOTIDINE 20 MG TAB PO SCH (17:50)
[2022-08-13 18:14] LABS: HEMATOCRIT 34.4 % (38.2-49.6); HEMOGLOBIN 10.8 g/dL (14.0-18.0)
[2022-08-13] MEDS: NYSTATIN 15 GM POWDER UD BTL TOP SCH (20:36)
[2022-08-14] MEDS: SODIUM CHLORIDE 0.9% 1000ML 1,000 ML IV SCH ×2 (03:43→14:21)
[2022-08-14 06:40] LABS: ANION GAP 12.9 mmol/L (8-16); CALCIUM 9.1 mg/dL (8.4-10.2); CREATININE, SERUM 3.17 mg/dL (0.72-1.25); PHOSPHORUS 4.3 MG/DL (2.3-4.7); POTASSIUM 3.9 mmol/L (3.5-5.1)
[2022-08-14 07:45] VITALS: BP 105/59
[2022-08-14 08:00] VITALS: BP 105/59
[2022-08-14] MEDS: CIPROFLOXACIN 500 MG TAB PO SCH ×2 (08:58→20:56)
[2022-08-14] MEDS: DOCUSATE SODIUM 100 MG CAP PO SCH ×2 (08:58→16:36)
[2022-08-14] MEDS: NYSTATIN 15 GM POWDER UD BTL TOP SCH ×3 (08:58→20:56)
[2022-08-14] MEDS: FAMOTIDINE 20 MG TAB PO SCH ×2 (08:58→16:36)
[2022-08-14] MEDS: TAMSULOSIN HCL 0.4 MG CAP PO SCH (08:58)
[2022-08-14] MEDS: SENNA-S TABLET PO SCH (08:58)
[2022-08-14] MEDS ORDERED: FAMOTIDINE 20 MG TAB PO SCH (09:00)
[2022-08-14 11:30] VITALS: BP 114/59
[2022-08-14 15:42] VITALS: BP 103/60
[2022-08-14 20:00] VITALS: BP 112/61
[2022-08-14 21:00] VITALS: BP 112/61
[2022-08-15] VITALS: BP 110/59
[2022-08-15] MEDS: SODIUM CHLORIDE 0.9% 1000ML 1,000 ML IV SCH ×3 (00:52→16:15)
[2022-08-15 04:00] VITALS: BP 101/56
[2022-08-15 06:30] LABS: ANION GAP 13.6 mmol/L (8-16); CREATININE, SERUM 2.99 mg/dL (0.72-1.25); POTASSIUM 3.6 mmol/L (3.5-5.1)
[2022-08-15 08:15] VITALS: BP 107/62
[2022-08-15] MEDS: TAMSULOSIN HCL 0.4 MG CAP PO SCH (10:00)
[2022-08-15] MEDS: FAMOTIDINE 20 MG TAB PO SCH ×2 (10:01→16:15)
[2022-08-15] MEDS: SENNA-S TABLET PO SCH (10:01)
[2022-08-15] MEDS: DOCUSATE SODIUM 100 MG CAP PO SCH ×2 (10:02→16:15)
[2022-08-15] MEDS: BALSAM PERU/CASTOR OIL 60 GM OINT...G. TP SCH (13:46)
[2022-08-15] MEDS: NYSTATIN 15 GM POWDER UD BTL TOP SCH ×3 (15:00→22:02)
[2022-08-15 16:04] VITALS: BP 107/73
[2022-08-15 21:21] VITALS: BP 108/66
[2022-08-16] VITALS (8 sets, daily range): BP systolic 100–133; BP diastolic 61–84
[2022-08-16 05:01] LABS: BASOPHILS # (AUTO) 0.1 (0.0-0.1); BASOPHILS % 0.7 % (0.0-1.0); EOSINOPHILS # (AUTO) 0.3 (0.0-0.4); EOSINOPHILS % 4.1 % (0.0-6.0); HEMATOCRIT 30.4 % (38.2-49.6); HEMOGLOBIN 9.5 g/dL (14.0-18.0); LYMPHOCYTES # (AUTO) 1.7 (1.0-3.2); LYMPHOCYTES % 24.3 % (18.0-39.1); MEAN CORPUSCULAR HEMOGLOBIN 30.6 pg (28-32); MEAN CORPUSCULAR HGB CONC 31.3 g/dL (31-35); MEAN CORPUSCULAR VOLUME 98.1 fL (81-99); MONOCYTES # (AUTO) 0.7 (0.2-0.8); MONOCYTES % 9.5 % (4.4-11.3); NEUTROPHILS # (AUTO) 4.2 (2.1-6.9); NEUTROPHILS % 60.7 % (38.7-80.0); PLATELET COUNT 202 x10e3/uL (140-360); RED CELL DISTRIBUTION WIDTH 16.8 % (11.7-14.4)
[2022-08-16 05:22] LABS: ANION GAP 13.5 mmol/L (8-16); CALCIUM 8.8 mg/dL (8.4-10.2); CREATININE, SERUM 2.72 mg/dL (0.72-1.25); POTASSIUM 3.5 mmol/L (3.5-5.1)
[2022-08-16] MEDS ORDERED: ONDANSETRON HCL 4 MG ORAL DISINTEGRATING TAB SL PRN ×2 (08:15)
[2022-08-16] MEDS: BALSAM PERU/CASTOR OIL 60 GM OINT...G. TP SCH (09:35)
[2022-08-16] MEDS: DOCUSATE SODIUM 100 MG CAP PO SCH ×2 (09:35→17:30)
[2022-08-16] MEDS: SENNA-S TABLET PO SCH (09:35)
[2022-08-16] MEDS: TAMSULOSIN HCL 0.4 MG CAP PO SCH (09:35)
[2022-08-16] MEDS: FAMOTIDINE 20 MG TAB PO SCH ×2 (09:35→17:30)
[2022-08-16] MEDS: NYSTATIN 15 GM POWDER UD BTL TOP SCH ×3 (09:35→21:00)
[2022-08-16] MEDS: HEPARIN SOD (PORCINE) 5,000 UNIT/ML VIAL SC SCH ×2 (10:49→21:40)
[2022-08-16] MEDS: SODIUM CHLORIDE 0.9% 1000ML 1,000 ML IV SCH (18:49)
[2022-08-17] VITALS (9 sets, daily range): BP systolic 103–121; BP diastolic 60–66
[2022-08-17 06:13] LABS: ANION GAP 13.7 mmol/L (8-16); CALCIUM 8.7 mg/dL (8.4-10.2); CREATININE, SERUM 2.73 mg/dL (0.72-1.25); POTASSIUM 3.7 mmol/L (3.5-5.1)
[2022-08-17] MEDS: DOCUSATE SODIUM 100 MG CAP PO SCH ×2 (11:27→18:25)
[2022-08-17] MEDS: SODIUM CHLORIDE 0.9% 1000ML 1,000 ML IV SCH (11:27)
[2022-08-17] MEDS: TAMSULOSIN HCL 0.4 MG CAP PO SCH (11:27)
[2022-08-17] MEDS: FAMOTIDINE 20 MG TAB PO SCH ×2 (11:27→15:38)
[2022-08-17] MEDS: SENNA-S TABLET PO SCH (11:27)
[2022-08-17] MEDS: NYSTATIN 15 GM POWDER UD BTL TOP SCH ×3 (11:29→21:22)
[2022-08-17] MEDS: BALSAM PERU/CASTOR OIL 60 GM OINT...G. TP SCH (11:29)
[2022-08-17] MEDS: HEPARIN SOD (PORCINE) 5,000 UNIT/ML VIAL SC SCH ×2 (11:31→21:20)
[2022-08-17] MEDS ORDERED: SODIUM CHLORIDE 0.9% 250ML 250 ML ONE (21:35)
[2022-08-18] VITALS (8 sets, daily range): BP systolic 101–127; BP diastolic 42–81
[2022-08-18 07:39] LABS: ANION GAP 10.7 mmol/L (8-16); CALCIUM 8.8 mg/dL (8.4-10.2); CREATININE, SERUM 2.72 mg/dL (0.72-1.25); POTASSIUM 3.7 mmol/L (3.5-5.1)
[2022-08-18] MEDS: SENNA-S TABLET PO SCH (08:40)
[2022-08-18] MEDS: DOCUSATE SODIUM 100 MG CAP PO SCH ×2 (08:40→17:09)
[2022-08-18] MEDS: FAMOTIDINE 20 MG TAB PO SCH ×2 (08:40→17:09)
[2022-08-18] MEDS: TAMSULOSIN HCL 0.4 MG CAP PO SCH (08:40)
[2022-08-18] MEDS: HEPARIN SOD (PORCINE) 5,000 UNIT/ML VIAL SC SCH (08:41)
[2022-08-18] MEDS: BALSAM PERU/CASTOR OIL 60 GM OINT...G. TP SCH (08:42)
[2022-08-18] MEDS: NYSTATIN 15 GM POWDER UD BTL TOP SCH ×3 (08:42→22:22)
[2022-08-19] VITALS (8 sets, daily range): BP systolic 104–125; BP diastolic 42–81
[2022-08-19 05:55] LABS: BASOPHILS % 0.5 % (0.0-1.0); EOSINOPHILS # (AUTO) 0.3 (0.0-0.4); EOSINOPHILS % 4.1 % (0.0-6.0); HEMATOCRIT 33.3 % (38.2-49.6); HEMOGLOBIN 10.5 g/dL (14.0-18.0); LYMPHOCYTES # (AUTO) 1.5 (1.0-3.2); LYMPHOCYTES % 20.8 % (18.0-39.1); MEAN CORPUSCULAR HEMOGLOBIN 30.9 pg (28-32); MEAN CORPUSCULAR HGB CONC 31.5 g/dL (31-35); MEAN CORPUSCULAR VOLUME 97.9 fL (81-99); MONOCYTES # (AUTO) 0.6 (0.2-0.8); MONOCYTES % 8.3 % (4.4-11.3); NEUTROPHILS # (AUTO) 4.8 (2.1-6.9); NEUTROPHILS % 65.3 % (38.7-80.0); PLATELET COUNT 223 x10e3/uL (140-360); RED CELL DISTRIBUTION WIDTH 17.1 % (11.7-14.4)
[2022-08-19 06:25] LABS: INR 1.04; PROTHROMBIN TIME 13.8 seconds (11.9-14.5)
[2022-08-19 06:26] LABS: PARTIAL THROMBOPLASTIN TIME 42.1 seconds (23.8-35.5)
[2022-08-19 06:44] LABS: ANION GAP 11.8 mmol/L (8-16); CREATININE, SERUM 2.56 mg/dL (0.72-1.25); POTASSIUM 3.8 mmol/L (3.5-5.1)
[2022-08-19] MEDS ORDERED: SODIUM CHLORIDE 0.9% 250ML 250 ML ONE ×2 (08:22→08:24)
[2022-08-19] MEDS ORDERED: LIDOCAINE 1% 10 ML MULTIDOSE VIAL IJ ONE (08:22)
[2022-08-19] MEDS: TAMSULOSIN HCL 0.4 MG CAP PO SCH (09:18)
[2022-08-19] MEDS: SENNA-S TABLET PO SCH (09:18)
[2022-08-19] MEDS: HEPARIN SOD (PORCINE) 5,000 UNIT/ML VIAL SC SCH ×2 (09:19→22:04)
[2022-08-19] MEDS: DOCUSATE SODIUM 100 MG CAP PO SCH ×2 (09:21→17:30)
[2022-08-19] MEDS: FAMOTIDINE 20 MG TAB PO SCH ×2 (09:21→17:30)
[2022-08-19] MEDS: BALSAM PERU/CASTOR OIL 60 GM OINT...G. TP SCH (09:22)
[2022-08-19] MEDS: NYSTATIN 15 GM POWDER UD BTL TOP SCH ×3 (09:22→22:04)
[2022-08-20] VITALS (8 sets, daily range): BP systolic 95–116; BP diastolic 60–81
[2022-08-20 05:16] LABS: ANION GAP 11.7 mmol/L (8-16); CALCIUM 9.6 mg/dL (8.4-10.2); CREATININE, SERUM 2.44 mg/dL (0.72-1.25); POTASSIUM 3.7 mmol/L (3.5-5.1)
[2022-08-20] MEDS: HEPARIN SOD (PORCINE) 5,000 UNIT/ML VIAL SC SCH (07:44)
[2022-08-20] MEDS: SENNA-S TABLET PO SCH (09:00)
[2022-08-20] MEDS: NYSTATIN 15 GM POWDER UD BTL TOP SCH ×2 (09:00→14:51)
[2022-08-20] MEDS: TAMSULOSIN HCL 0.4 MG CAP PO SCH (09:00)
[2022-08-20] MEDS: DOCUSATE SODIUM 100 MG CAP PO SCH ×2 (09:00→17:28)
[2022-08-20] MEDS: BALSAM PERU/CASTOR OIL 60 GM OINT...G. TP SCH (09:00)
[2022-08-20] MEDS: FAMOTIDINE 20 MG TAB PO SCH ×2 (09:00→17:28)
[2022-08-21 00:46] VITALS: BP 120/72
[2022-08-21 04:00] VITALS: BP 98/54
[2022-08-21 05:00] LABS: BASOPHILS % 0.5 % (0.0-1.0); EOSINOPHILS # (AUTO) 0.3 (0.0-0.4); EOSINOPHILS % 3.4 % (0.0-6.0); HEMATOCRIT 35.7 % (38.2-49.6); HEMOGLOBIN 11.2 g/dL (14.0-18.0); LYMPHOCYTES # (AUTO) 1.4 (1.0-3.2); LYMPHOCYTES % 18.3 % (18.0-39.1); MEAN CORPUSCULAR HEMOGLOBIN 30.9 pg (28-32); MEAN CORPUSCULAR HGB CONC 31.4 g/dL (31-35); MEAN CORPUSCULAR VOLUME 98.3 fL (81-99); MONOCYTES # (AUTO) 0.8 (0.2-0.8); MONOCYTES % 10.1 % (4.4-11.3); NEUTROPHILS # (AUTO) 5.1 (2.1-6.9); NEUTROPHILS % 66.9 % (38.7-80.0); PLATELET COUNT 213 x10e3/uL (140-360); RED BLOOD COUNT 3.63 x10e6/uL (4.3-5.7); RED CELL DISTRIBUTION WIDTH 16.9 % (11.7-14.4)
[2022-08-21 05:15] LABS: ANION GAP 12.9 mmol/L (8-16); CALCIUM 9.6 mg/dL (8.4-10.2); CREATININE, SERUM 2.6 mg/dL (0.72-1.25); POTASSIUM 3.9 mmol/L (3.5-5.1)
[2022-08-21] MEDS: FAMOTIDINE 20 MG TAB PO SCH ×2 (07:30→16:30)
[2022-08-21] MEDS ORDERED: IOPAMIDOL 610MG/1ML 300 MG/ML VIAL IV ONE ×2 (07:53→11:27)
[2022-08-21 08:00] VITALS: BP 98/54
[2022-08-21] MEDS: BALSAM PERU/CASTOR OIL 60 GM OINT...G. TP SCH (09:00)
[2022-08-21] MEDS: TAMSULOSIN HCL 0.4 MG CAP PO SCH (09:00)
[2022-08-21] MEDS: DOCUSATE SODIUM 100 MG CAP PO SCH ×2 (09:00→17:00)
[2022-08-21] MEDS: SENNA-S TABLET PO SCH (09:00)
[2022-08-21] MEDS ORDERED: SODIUM CHLORIDE 0.9% 250ML 250 ML ONE (09:15)
[2022-08-21] MEDS ORDERED: KETAMINE HCL INJ 50 MG/ML 10 ML VIAL ONE (09:22)
[2022-08-21] MEDS ORDERED: NEOSTIGMINE 1 MG/ML 10ML VIAL ONE (11:26)
[2022-08-21] MEDS ORDERED: Morphine 2mg Syringe 2 MG/ML SYR IV PRN (11:30)
[2022-08-21] MEDS ORDERED: ACETAMINOPHEN/CODEINE 300MG - 30MG TAB PO PRN (11:30)
[2022-08-21] MEDS ORDERED: EPHEDRINE SULFATE INJ 50 MG/ML VIAL ONE (12:05)
[2022-08-21] MEDS ORDERED: ETOMIDATE 2 MG/ML 10 ML INJ IV ONE (12:05)
[2022-08-21] MEDS ORDERED: DEXAMETHASONE SOD PHOS INJ 4 MG/ML SDV ONE (12:05)
[2022-08-21] MEDS ORDERED: LIDOCAINE HCL 2% LOCAL INJ 5 ML SDV VIAL INJ ONE (12:05)
[2022-08-21] MEDS ORDERED: ONDANSETRON HCL INJ 2MG/ML 2ML 2 MG/ML VIAL ONE (12:05)
[2022-08-21] MEDS ORDERED: ROCURONIUM BROMIDE 10 MG/ML 5ML VIAL IV ONE (12:05)
[2022-08-21] MEDS ORDERED: SUGAMMADEX SODIUM 200 MG/2 ML VIAL IV ONE (12:05)
[2022-08-21] MEDS ORDERED: PHENYLEPHRINE HCL 1% 10 MG/ML VIAL ONE (12:05)
[2022-08-21] MEDS ORDERED: SEVOFLURANE INHAL SOLN 250 ML PEN BTL ONE (12:05)
[2022-08-21] MEDS ORDERED: POVIDONE IODINE 0.05% 0.05 % ML PO ONE (12:05)
[2022-08-21] MEDS ORDERED: MIDAZOLAM HCL 2 MG/2 ML VIAL ONE (12:11)
[2022-08-21] MEDS ORDERED: FENTANYL CITRATE/PF 100MCG/2 ML INJ ONE ×2 (12:11→12:52)
[2022-08-21] MEDS ORDERED: ACETAMINOPHEN 1000 MG/100 ML IV PRN (14:00)
[2022-08-21 16:28] VITALS: BP 120/70
[2022-08-21 20:00] VITALS: BP_SYST 115; BP_SYST 99; BP_DIAS 61; BP_DIAS 66
[2022-08-22] VITALS (7 sets, daily range): BP systolic 75–100; BP diastolic 52–78
[2022-08-22 04:59] LABS: BASOPHILS # (AUTO) 0.1 (0.0-0.1); BASOPHILS % 0.5 % (0.0-1.0); EOSINOPHILS % 0.2 % (0.0-6.0); HEMATOCRIT 34.6 % (38.2-49.6); HEMOGLOBIN 10.8 g/dL (14.0-18.0); LYMPHOCYTES # (AUTO) 1.1 (1.0-3.2); LYMPHOCYTES % 11.9 % (18.0-39.1); MEAN CORPUSCULAR HEMOGLOBIN 31.1 pg (28-32); MEAN CORPUSCULAR HGB CONC 31.2 g/dL (31-35); MEAN CORPUSCULAR VOLUME 99.7 fL (81-99); MONOCYTES # (AUTO) 0.7 (0.2-0.8); MONOCYTES % 7.1 % (4.4-11.3); NEUTROPHILS # (AUTO) 7.3 (2.1-6.9); NEUTROPHILS % 79.6 % (38.7-80.0); PLATELET COUNT 229 x10e3/uL (140-360); RED BLOOD COUNT 3.47 x10e6/uL (4.3-5.7)
[2022-08-22 05:38] LABS: ANION GAP 14.8 mmol/L (8-16); CALCIUM 9.6 mg/dL (8.4-10.2); CREATININE, SERUM 2.61 mg/dL (0.72-1.25); POTASSIUM 4.8 mmol/L (3.5-5.1)
[2022-08-22] MEDS: SODIUM BICARBONATE 650 MG TAB PO SCH ×2 (09:49→17:35)
[2022-08-22] MEDS: TAMSULOSIN HCL 0.4 MG CAP PO SCH (09:49)
[2022-08-22] MEDS: DOCUSATE SODIUM 100 MG CAP PO SCH ×2 (09:49→17:35)
[2022-08-22] MEDS: BALSAM PERU/CASTOR OIL 60 GM OINT...G. TP SCH (09:49)
[2022-08-22] MEDS: SENNA-S TABLET PO SCH (09:49)
[2022-08-22] MEDS: FAMOTIDINE 20 MG TAB PO SCH ×2 (09:49→17:38)
[2022-08-23] VITALS (8 sets, daily range): BP systolic 89–113; BP diastolic 54–68
[2022-08-23] MEDS: FAMOTIDINE 20 MG TAB PO SCH ×2 (08:30→17:30)
[2022-08-23] MEDS: DOCUSATE SODIUM 100 MG CAP PO SCH ×2 (09:00→17:37)
[2022-08-23] MEDS: SODIUM BICARBONATE 650 MG TAB PO SCH ×2 (09:00→17:37)
[2022-08-23] MEDS: TAMSULOSIN HCL 0.4 MG CAP PO SCH (09:00)
[2022-08-23] MEDS: BALSAM PERU/CASTOR OIL 60 GM OINT...G. TP SCH (09:01)
[2022-08-23] MEDS: SENNA-S TABLET PO SCH (09:01)
[2022-08-24] VITALS (8 sets, daily range): BP systolic 93–115; BP diastolic 48–68
[2022-08-24 07:12] LABS: ANION GAP 14.1 mmol/L (8-16); CALCIUM 9.6 mg/dL (8.4-10.2); CREATININE, SERUM 2.8 mg/dL (0.72-1.25); POTASSIUM 4.1 mmol/L (3.5-5.1)
[2022-08-24] MEDS: SENNA-S TABLET PO SCH (09:04)
[2022-08-24] MEDS: DOCUSATE SODIUM 100 MG CAP PO SCH ×2 (09:04→17:34)
[2022-08-24] MEDS: FAMOTIDINE 20 MG TAB PO SCH ×2 (09:04→17:36)
[2022-08-24] MEDS: SODIUM BICARBONATE 650 MG TAB PO SCH ×4 (09:05→21:24)
[2022-08-24] MEDS: BALSAM PERU/CASTOR OIL 60 GM OINT...G. TP SCH (09:05)
[2022-08-24] MEDS: TAMSULOSIN HCL 0.4 MG CAP PO SCH (11:50)
[2022-08-24] MEDS ORDERED: SODIUM CHLORIDE 0.9% 500ML 500 ML IV ONE (13:00)
[2022-08-25] VITALS (8 sets, daily range): BP systolic 105–160; BP diastolic 58–87
[2022-08-25] MEDS: SENNA-S TABLET PO SCH (09:08)
[2022-08-25] MEDS: FAMOTIDINE 20 MG TAB PO SCH ×2 (09:08→16:38)
[2022-08-25] MEDS: SODIUM BICARBONATE 650 MG TAB PO SCH ×3 (09:08→22:09)
[2022-08-25] MEDS: TAMSULOSIN HCL 0.4 MG CAP PO SCH (09:09)
[2022-08-25] MEDS: BALSAM PERU/CASTOR OIL 60 GM OINT...G. TP SCH (09:09)
[2022-08-25] MEDS: DOCUSATE SODIUM 100 MG CAP PO SCH ×2 (09:09→17:00)
[2022-08-25] MEDS ORDERED: LINEZOLID 600 MG/D5W 300ML 300 ML IV SCH (11:15)
[2022-08-25] MEDS: LINEZOLID 600 MG/D5W 300ML 300 ML IV SCH (16:32)
[2022-08-25] MEDS: FUROSEMIDE INJ 10 MG/ML 2 ML VIAL IV SCH (16:38)
[2022-08-26] VITALS (8 sets, daily range): BP systolic 96–110; BP diastolic 53–71
[2022-08-26] MEDS: LINEZOLID 600 MG/D5W 300ML 300 ML IV SCH ×2 (04:27→16:22)
[2022-08-26] MEDS: FUROSEMIDE INJ 10 MG/ML 2 ML VIAL IV SCH (06:01)
[2022-08-26] MEDS: SENNA-S TABLET PO SCH (08:41)
[2022-08-26] MEDS: DOCUSATE SODIUM 100 MG CAP PO SCH ×2 (08:41→16:57)
[2022-08-26] MEDS: TAMSULOSIN HCL 0.4 MG CAP PO SCH (08:41)
[2022-08-26] MEDS: SODIUM BICARBONATE 650 MG TAB PO SCH ×2 (08:41→14:59)
[2022-08-26] MEDS: FAMOTIDINE 20 MG TAB PO SCH ×2 (08:41→16:57)
[2022-08-26] MEDS: BALSAM PERU/CASTOR OIL 60 GM OINT...G. TP SCH (08:47)
[2022-08-26] MEDS ORDERED: SODIUM CHLORIDE 0.9% 1000ML 1,000 ML IV ONE (15:00)
== END 2022-08-26 17:12 | DRG 659 ==
LOC: ER 19:29 → ERHOLD 20:35 → MED/SURG2 23:31
PROVIDERS: ADMIT Internal Medicine; ATTEND Internal Medicine
PROC: 0T788DZ Dilation of Bilateral Ureters with Intraluminal Device, Via Natural or Artificial Opening Endoscopic (ICD-10-PCS; principal; 2022-08-12)
PROC: 0TP98DZ Removal of Intraluminal Device from Ureter, Via Natural or Artificial Opening Endoscopic (ICD-10-PCS; 2022-08-12)
PROC: BT141ZZ Fluoroscopy of Kidneys, Ureters and Bladder using Low Osmolar Contrast (ICD-10-PCS; 2022-08-12)
PROC: 0TC78ZZ Extirpation of Matter from Left Ureter, Via Natural or Artificial Opening Endoscopic (ICD-10-PCS; 2022-08-12)
PROC: 0TC68ZZ Extirpation of Matter from Right Ureter, Via Natural or Artificial Opening Endoscopic (ICD-10-PCS; 2022-08-12)
PROC: 02HV33Z Insertion of Infusion Device into Superior Vena Cava, Percutaneous Approach (ICD-10-PCS; 2022-08-25)
DX: N13.6 Pyonephrosis (principal); I50.33 Acute on chronic diastolic (congestive) heart failure; D68.9 Coagulation defect, unspecified; I13.0 Hypertensive heart and chronic kidney disease with heart failure and stage 1 through stage 4 chronic kidney disease, or unspecified chronic kidney disease; Z16.22 Resistance to vancomycin related antibiotics; Z16.24 Resistance to multiple antibiotics; N13.8 Other obstructive and reflux uropathy; E87.20 Acidosis, unspecified; N17.9 Acute kidney failure, unspecified; N18.4 Chronic kidney disease, stage 4 (severe); Z66 Do not resuscitate; L89.152 Pressure ulcer of sacral region, stage 2; N18.2 Chronic kidney disease, stage 2 (mild); K57.30 Diverticulosis of large intestine without perforation or abscess without bleeding; B96.5 Pseudomonas (aeruginosa) (mallei) (pseudomallei) as the cause of diseases classified elsewhere; Z74.01 Bed confinement status; Z86.73 Personal history of transient ischemic attack (TIA), and cerebral infarction without residual deficits; Z74.09 Other reduced mobility; Z96.0 Presence of urogenital implants; Z93.6 Other artificial openings of urinary tract status; E66.01 Morbid (severe) obesity due to excess calories; Z68.38 Body mass index [BMI] 38.0-38.9, adult; R31.9 Hematuria, unspecified; N48.89 Other specified disorders of penis; N32.9 Bladder disorder, unspecified; N35.919 Unspecified urethral stricture, male, unspecified site; Z86.718 Personal history of other venous thrombosis and embolism; Z79.01 Long term (current) use of anticoagulants; Z20.822 Contact with and (suspected) exposure to COVID-19
CPT/HCPCS: 36415; 36569; 50387; 50431; 71045; 74176; 74420; 74470; 80048; 80053; 82948; 83735; 84100; 85014; 85018; 85025; 85610; 85730; 87086; 87186; 88300; 94799; 96361; 97139; 99252; 99284; C1769; C2625; J1100; J1644; J1940; J2001; J2020; J2185; J2250; J2270; J2370; J2405; J2710; J7030; J7040; J7050